=== PATIENT | female | born 1940 | race Caucasian/White ===

== ENCOUNTER 2020-12-13 08:09 | Outpatient (CLI) | payer MEDICARE, MEDICAID ==
[2020-12-13] MEDS ORDERED: Iopamidol-370 76% 500 ML 1 ML ONE (08:51)
== END 2020-12-13 08:10 | disposition home or self-care (01) ==
LOC: BICCT 08:09
PROVIDERS: ATTEND Thoracic Surgery (Cardiothoracic Vascular Surgery)
DX: I65.23 Occlusion and stenosis of bilateral carotid arteries (principal)
CPT/HCPCS: 70498; 82565; Q9967

== ENCOUNTER 2021-01-05 12:23 | Outpatient (CLI) | payer MEDICARE, MEDICAID ==
[2021-01-05 13:40] LABS: Hemoglobin 13.9 g/dL (12.0-15.5); Mean Corpuscular HGB CONC 31.5 g/dL (32.0-36.0); Mean Corpuscular Hemoglobin 27.7 pg (27.0-33.0); Mean Platelet Volume 11.1 fl (7.4-10.4); Platelet Count 158 10x3/uL (150-450); RBC Distribution Width 14.7 % (11.5-14.5); Red Blood Cell (RBC) Count 5.01 10x6/uL (3.90-5.03); White Blood Cell (WBC) Count 5.6 10x3/uL (3.5-10.5)
[2021-01-05 13:52] LABS: Anion Gap 13 mmol/L (10-20); BUN (Urea Nitrogen) 14 mg/dL (9.8-20.1); Calc. Creatinine Clearance 0 mL/min (70-130); Calcium 9.4 mg/dL (7.8-10.44); Carbon Dioxide 23 mmol/L (23-31); Chloride 111 mmol/L (98-107); Glucose 98 mg/dL (83-110); Potassium 4.2 mmol/L (3.5-5.1); Sodium 143 mmol/L (136-145)
[2021-01-05 20:47] LABS: SARS-CoV-2 PCR by NAA Not Detected (NotDetected)
== END 2021-01-05 12:24 | disposition home or self-care (01) ==
LOC: LABBT 12:23
PROVIDERS: ATTEND Thoracic Surgery (Cardiothoracic Vascular Surgery)
DX: Z01.812 Encounter for preprocedural laboratory examination (principal); I65.29 Occlusion and stenosis of unspecified carotid artery; Z20.822 Contact with and (suspected) exposure to COVID-19
CPT/HCPCS: 80048; 85027; U0003; U0005; 87635

== ENCOUNTER 2021-01-05 13:00 | Inpatient (IN) | payer MEDICARE, MEDICAID ==
[2021-01-10] MEDS ORDERED: Protamine Sulfate 250 MG/25 ML VIAL ONE (06:29)
[2021-01-10] MEDS ORDERED: Dexamethasone 4 mg/ml Vial ONE (06:29)
[2021-01-10] MEDS ORDERED: EPINEPHrine 1 MG/ML AMP ONE (06:29)
[2021-01-10] MEDS ORDERED: Heparin 5,000 UNITS/ML VIAL ONE (06:29)
[2021-01-10] MEDS ORDERED: Bupivacaine PF 0.5% 30 ML VIAL ONE (06:29)
[2021-01-10] MEDS ORDERED: Protamine Sulfate 50 MG/5 ML VIAL ONE (06:30)
[2021-01-10] MEDS ORDERED: Midazolam HCl 2 mg/2 ml Vial ONE (06:31)
[2021-01-10] MEDS ORDERED: Fentanyl 100 MCG/2 ML VIAL ONE ×2 (06:31→09:24)
[2021-01-10] MEDS ORDERED: Phenylephrine 10 MG/ML VIAL ONE (06:31)
[2021-01-10] MEDS ORDERED: Lidocaine 1% PF 5 ML VIAL ONE (07:18)
[2021-01-10] MEDS ORDERED: Glycopyrrolate 0.2 MG/ML 5 ML SYRINGE ONE (07:18)
[2021-01-10] MEDS ORDERED: Dexamethasone 20 MG/5 ML VIAL ONE (07:18)
[2021-01-10] MEDS ORDERED: PROPOFOL 200 MG/20 ML VIAL ONE (07:18)
[2021-01-10] MEDS ORDERED: Ondansetron PF 4 MG/2 ML Vial ONE (07:18)
[2021-01-10] MEDS ORDERED: Labetalol HCl 100 MG/20 ML VIAL ONE (07:18)
[2021-01-10] MEDS ORDERED: Ketorolac Tromethamine 30 MG/ML VIAL ONE (07:18)
[2021-01-10] MEDS ORDERED: Rocuronium Bromide 10 MG/ML (10ML VIAL) ONE (07:18)
[2021-01-10] MEDS ORDERED: Acetaminophen 325 MG TAB PO PRN (08:37)
[2021-01-10] MEDS ORDERED: niCARdipine 25 MG in Sodium Chloride 0.9% 250 ML 250 ML IVPB PRN (08:37)
[2021-01-10] MEDS ORDERED: Phenylephrine 40 MG in Sodium Chloride 0.9% 250 ML 250 ML IVPB PRN (08:37)
[2021-01-10] MEDS ORDERED: Nitroglycerin 50 MG/250 ML BOT 250 ML IVPB PRN (08:37)
[2021-01-10] MEDS ORDERED: Ondansetron PF 4 MG/2 ML Vial IVP PRN (08:37)
[2021-01-10] MEDS ORDERED: Ondansetron HCl/PF 4 MG/2 ML Vial IVP PRN (08:48)
[2021-01-10] MEDS ORDERED: Nitroglycerin 50 MG/250 ML BOT 0 ML ONE (08:51)
[2021-01-10] MEDS: Sodium Chloride 0.9% 1,000 ML IV SCH ×2 (11:14→20:55)
[2021-01-10] MEDS: Aspirin Chewable 81 MG TAB PO SCH (11:26)
[2021-01-10] MEDS: Gabapentin 300 MG CAP PO SCH ×3 (11:26→20:48)
[2021-01-10] MEDS: Topiramate 100 MG TAB PO SCH ×2 (11:27→20:49)
[2021-01-10] MEDS: CEFAZOLIN 2 GM in Premix Bag 1 BAG IVPB SCH ×2 (16:30→22:57)
[2021-01-10 17:29] VITALS: BMI 30.5
[2021-01-10] MEDS: Fentanyl 100 MCG/2 ML VIAL SLOW IVP PRN ×2 (18:36→22:55)
[2021-01-11] MEDS: Sodium Chloride 0.9% 1,000 ML IV SCH (04:40)
[2021-01-11] MEDS: Aspirin Chewable 81 MG TAB PO SCH (07:45)
[2021-01-11] MEDS: Topiramate 100 MG TAB PO SCH (07:45)
[2021-01-11] MEDS: Gabapentin 300 MG CAP PO SCH (07:46)
[2021-01-11 08:50] VITALS: TEMP 99.8
[2021-01-11] MEDS ORDERED: Clopidogrel Bisulfate 75 MG TAB PO SCH (09:00)
[2021-01-11] MEDS ORDERED: Rosuvastatin 20 MG TAB PO SCH (09:00)
[2021-01-11] MEDS ORDERED: Potassium Chloride 10 MEQ TAB PO SCH (09:00)
[2021-01-11] MEDS ORDERED: Apixaban 5 MG TAB PO SCH (09:00)
== END 2021-01-11 10:00 | disposition home or self-care (01) | DRG 36 ==
LOC: SURG A 01-10 06:03 → CCU 01-10 10:15
PROVIDERS: ADMIT Thoracic Surgery (Cardiothoracic Vascular Surgery); ATTEND Thoracic Surgery (Cardiothoracic Vascular Surgery)
PROC: 037J3DZ Dilation of Left Common Carotid Artery with Intraluminal Device, Percutaneous Approach (ICD-10-PCS; principal; 2021-01-10)
PROC: B54CZZA Ultrasonography of Left Lower Extremity Veins, Guidance (ICD-10-PCS; 2021-01-10)
DX: I65.22 Occlusion and stenosis of left carotid artery (principal); Z20.822 Contact with and (suspected) exposure to COVID-19; I25.10 Atherosclerotic heart disease of native coronary artery without angina pectoris; I73.9 Peripheral vascular disease, unspecified; E78.00 Pure hypercholesterolemia, unspecified; I10 Essential (primary) hypertension; M10.9 Gout, unspecified; G40.909 Epilepsy, unspecified, not intractable, without status epilepticus; Z90.710 Acquired absence of both cervix and uterus; Z87.891 Personal history of nicotine dependence; Z79.82 Long term (current) use of aspirin; Z79.899 Other long term (current) drug therapy
CPT/HCPCS: 76000; 93005; 93010; C1725; C1876; C1884; J0171; J0690; J1100; J1642; J1644; J1885; J2250; J2370; J2405; J2704; J2720; J3010; J7620; S0020

== ENCOUNTER 2022-02-01 11:34 | Inpatient (IN) | payer MEDICARE, MEDICAID ==
[2022-02-01] MEDS ORDERED: Ondansetron PF 4 MG/2 ML Vial ONE (12:13)
[2022-02-01 12:28] LABS: Hemoglobin 11.6 g/dL (12.0-16.0); Mean Corpuscular HGB CONC 29.9 g/dL (32.0-36.0); Mean Corpuscular Hemoglobin 24.5 pg (27.0-31.0); Mean Corpuscular Volume 81.7 fL (78.0-98.0); Mean Platelet Volume 9.7 fL (7.4-10.4); Platelet Count 146 thou/uL (130-400); RBC Distribution Width 15.9 % (11.5-14.5); Red Blood Cell (RBC) Count 4.73 mill/uL (4.20-5.40)
[2022-02-01 12:46] LABS: Band 28 % (5-11); Hypochromia SLIGHT = 6-15 cells (100X) (0-5/hpf); Lymphocytes 4 % (21-51); MDiff Complete? YES; Monocytes 1 % (0-10); Neutrophil 63 % (42-75); Ovalocytes SLIGHT = 2-5 cells (100X) (0-1/hpf); Platelet Morphology Comment Appears Adequate; Polychromasia SLIGHT = 2-3 cells (100X) (0-2/hpf); Reactive Lymphocytes 4 % (0-10)
[2022-02-01] MEDS ORDERED: Cefepime 2 GM VIAL ONE (12:55)
[2022-02-01 13:06] LABS: Bacteria/HPF 4+ HPF (None Seen); Bilirubin Negative (Negative); Blood, Urine 3+ (Negative); Clarity Turbid (Clear); Glucose, Urine (Dipstick) Normal (Negative); Ketone, Urine Negative (Negative); Leukocyte 500 Leu/uL (Negative); Nitrite Negative (Negative); Protein, Urine (Dipstick) 70 mg/dL (Neg-Trace); RBC/HPF Greater than 50 HPF (0-3); Specific Gravity, Urine 1.021 (1.002-1.036); Squamous Epithelial 0-3 HPF (0-3); Urobilinogen 3 mg/dL (Less than 2); WBC/HPF Greater than 50 HPF (0-3); pH, Urine 5.5 (5.0-9.0)
[2022-02-01] MEDS ORDERED: Vancomycin 1.5 GRAM/300 ML BAG 1.5 GM in Premix Bag 1 BAG IVPB SCH (13:15)
[2022-02-01 13:32] LABS: ALT (SGPT) 16 U/L (8-55); AST (SGOT) 25 U/L (5-34); Alkaline Phosphatase 105 U/L (40-110); Anion Gap 13 mmol/L (10-20); BUN (Urea Nitrogen) 25 mg/dL (9.8-20.1); Bilirubin, Total 1.2 mg/dL (0.2-1.2); Calc. Creatinine Clearance 0 mL/min (70-130); Carbon Dioxide 20 mmol/L (23-31); Chloride 115 mmol/L (98-107); Globulin 2.4 g/dL (2.4-3.5); Glucose 98 mg/dL (83-110); Protein, Total 5.4 g/dL (5.8-8.1); Sodium 145 mmol/L (136-145)
[2022-02-01 13:34] LABS: Potassium 2.9 mmol/L (3.5-5.1)
[2022-02-01 13:41] LABS: INR-International Normal Ratio 1.4; Prothrombin Time 17.3 sec (12.0-14.7)
[2022-02-01] MEDS ORDERED: NS 0.9% w/ 40 MEQ KCL 1,000 ML IV SCH (13:45)
[2022-02-01 13:54] LABS: PTT 35.9 sec (22.9-36.1)
[2022-02-01 14:01] LABS: CKMB 2.5 ng/mL (0-6.6)
[2022-02-01] MEDS ORDERED: Iopamidol-370 76% 500 ML 1 ML ONE (15:20)
[2022-02-01 15:44] LABS: Lactic Acid 4.5 mmol/L (0.5-2.2)
[2022-02-01] MEDS ORDERED: Ondansetron ODT 4 MG TAB PO PRN (16:24)
[2022-02-01] MEDS ORDERED: Lactated Ringer's 1,000 ML IV SCH (16:30)
[2022-02-01 17:08] LABS: Anion Gap 10 mmol/L (10-20); BUN (Urea Nitrogen) 26 mg/dL (9.8-20.1); Calc. Creatinine Clearance 0 mL/min (70-130); Calcium 7.2 mg/dL (7.8-10.44); Carbon Dioxide 19 mmol/L (23-31); Chloride 117 mmol/L (98-107); Glucose 116 mg/dL (83-110); Potassium 3.5 mmol/L (3.5-5.1); Sodium 142 mmol/L (136-145)
[2022-02-01 17:10] LABS: CK (CPK) 331 U/L (29-168); Lipase 16 U/L (8-78); Magnesium 1.4 mg/dL (1.6-2.6)
[2022-02-01 17:15] LABS: SARS-CoV-2 NAA Rapid Test DETECTED (NotDetected)
[2022-02-01 17:28] LABS: Troponin I 0.487 ng/mL (< 0.028)
[2022-02-01] MEDS ORDERED: Iopamidol 0 ML ONE (17:31)
[2022-02-01] MEDS ORDERED: Magnesium 2 GM/50 ML(in water) 2 GM in Premix Bag 1 BAG IVPB SCH (18:00)
[2022-02-01] MEDS ORDERED: fentaNYL Citrate/PF 100 MCG/2 ML SYRINGE ONE (18:18)
[2022-02-01] MEDS ORDERED: Succinylcholine 200 MG/10 ml SYRINGE FS ONE (18:46)
[2022-02-01] MEDS ORDERED: PHENYLEPHRINE-NS 100 MCG/ML 10 ML SYRINGE ONE (18:46)
[2022-02-01] MEDS ORDERED: ePHEDrine 50 MG/ML VIAL ONE (18:46)
[2022-02-01] MEDS ORDERED: Lidocaine 1% PF 5 ML VIAL ONE (18:46)
[2022-02-01] MEDS ORDERED: Rocuronium Bromide 10 MG/ML (10ML VIAL) ONE (18:46)
[2022-02-01] MEDS ORDERED: PROPOFOL 200 MG/20 ML VIAL ONE (18:46)
[2022-02-01] MEDS ORDERED: Phenylephrine 40 MG/NS 250 ML 40 MG in Premix Bag 1 BAG IVPB SCH (19:45)
[2022-02-01] MEDS ORDERED: Dextrose 50% Abboject 50 ML SYRINGE ONE (20:18)
[2022-02-01] MEDS ORDERED: Sodium Bicarb 50 MEQ/50 ML VIAL ONE (20:19)
[2022-02-01] MEDS ORDERED: Vecuronium 10 MG VIAL IVP PRN (21:23)
[2022-02-01] MEDS ORDERED: Ventilator Sedation Protocol 1 EACH FS SCH (21:30)
[2022-02-01] MEDS ORDERED: Propofol BOLUS 1,000 MG/100 ML VIAL IV PRN (21:30)
[2022-02-01] MEDS ORDERED: Lorazepam 2 MG/ML VIAL SLOW IVP PRN (21:30)
[2022-02-01] MEDS ORDERED: DISCONTINUE PREVIOUS NARCOTIC PAIN MEDICATIONS AND BENZODIAZEPINES FS SCH (21:30)
[2022-02-01] MEDS ORDERED: Morphine 4 MG/ML VIAL SLOW IVP PRN (21:30)
[2022-02-01] MEDS ORDERED: Fentanyl CADD 100 ML IV SCH (21:30)
[2022-02-01] MEDS ORDERED: Fentanyl BOLUS 250 ML IVPB PRN (21:30)
[2022-02-01] MEDS ORDERED: Norepinephrine 8 MG/0.9% NS 250 ML ONE (21:37)
[2022-02-01] MEDS: Norepinephrine 8 MG/0.9% NS 250 ML IVPB SCH (21:39)
[2022-02-01 21:50] LABS: Lactic Acid 3.4 mmol/L (0.5-2.2)
[2022-02-01] MEDS ORDERED: Dexamethasone 6 MG in Sodium Chloride 0.9% 50 ML IVPB SCH (22:00)
[2022-02-01] MEDS: Sodium Bicarbonate 140 MEQ in Dextrose 5% in Water 1,000 ML IV SCH (22:25)
[2022-02-02] MEDS ORDERED: Piperacillin/Tazobactam 3.375 GM in Sodium Chloride 0.9% 100 ML IVPB SCH (01:00)
[2022-02-02] MEDS: fentaNYL Citrate-0.9 % NaCl/PF 100 ML IVPB SCH (02:27)
[2022-02-02] MEDS ORDERED: Ipratropium/Albuterol Sulfate 4 GM AER IH SCH (02:30)
[2022-02-02] MEDS: Piperacillin/Tazobactam 3.375 GM in Sodium Chloride 0.9% 100 ML IVPB SCH ×3 (04:16→21:38)
[2022-02-02 05:10] LABS: ALT (SGPT) 24 U/L (8-55); AST (SGOT) 38 U/L (5-34); Albumin 2.3 g/dL (3.4-4.8); Alkaline Phosphatase 95 U/L (40-110); Anion Gap 14 mmol/L (10-20); BUN (Urea Nitrogen) 27 mg/dL (9.8-20.1); Calc. Creatinine Clearance 45 mL/min (70-130); Calcium 6.6 mg/dL (7.8-10.44); Carbon Dioxide 20 mmol/L (23-31); Chloride 111 mmol/L (98-107); Glucose 287 mg/dL (83-110); Magnesium 1.9 mg/dL (1.6-2.6); Protein, Total 4.3 g/dL (5.8-8.1); Sodium 142 mmol/L (136-145)
[2022-02-02 05:14] LABS: Critical Call Chem Troponin I RESULT DECREASING; Troponin I 0.386 ng/mL (< 0.028)
[2022-02-02] MEDS: Sodium Bicarbonate 140 MEQ in Dextrose 5% in Water 1,000 ML IV SCH ×3 (05:31→21:36)
[2022-02-02 06:37] LABS: Band 41 % (5-11); Hemoglobin 10.3 g/dL (12.0-16.0); Lymphocytes 2 % (21-51); MDiff Complete? YES; Mean Corpuscular HGB CONC 30.2 g/dL (32.0-36.0); Mean Corpuscular Hemoglobin 24.5 pg (27.0-31.0); Mean Corpuscular Volume 81.3 fL (78.0-98.0); Mean Platelet Volume 10.7 fL (7.4-10.4); Metamyelocyte 3 % (0-0); Myelocyte 3 % (0-0); Neutrophil 51 % (42-75); Platelet Count 171 thou/uL (130-400); RBC Distribution Width 15.9 % (11.5-14.5); White Blood Cell (WBC) Count 36.3 thou/uL (4.8-10.8)
[2022-02-02] MEDS ORDERED: Electrolyte Replacement Protocol 1 EACH FS PRN (06:37)
[2022-02-02] MEDS: Albuterol 200 PUFF (6.7GM INHALER) INH SCH ×6 (06:41→22:14)
[2022-02-02] MEDS: Ipratropium/Albuterol Sulfate 4 GM AER IH SCH ×3 (07:28→18:59)
[2022-02-02 07:47] LABS: Actual Bicarbonate (HCO3a) 17.5 mEq/L (22-28); Base Excess (BEa) -4.7 mEq/L (-2.0 to +3.0); Calcium, Ionized (arterial) 0.95 mmol/L (1.12-1.30); Carboxyhemoglobin (COHb) 0.2 gm% (0.0-3.0); Hemoglobin (Hb) 10.7 g/dL (12.0-16.0); O2 Tension (PaO2), arterial 133.4 mmHg (> 60.0); pH, Arterial 7.48 (7.35-7.45)
[2022-02-02 07:51] LABS: CO2 Tension 24.2 mmHg (35.0-45.0); Puncture Site RRA
[2022-02-02] MEDS ORDERED: Magnesium 2 GM/50 ML(in water) 2 GM in Premix Bag 1 BAG IVPB SCH (08:00)
[2022-02-02] MEDS ORDERED: Famotidine/PF 20 mg/2ml Vial SLOW IVP SCH (09:00)
[2022-02-02] MEDS: VANCOMYCIN 1.25 GM/250 ML BAG 1.25 GM in Premix Bag 1 BAG IVPB SCH (09:10)
[2022-02-02] MEDS: Dexamethasone 6 MG in Sodium Chloride 0.9% 50 ML IVPB SCH (10:24)
[2022-02-02] MEDS: Potassium Chloride 20 MEQ in Premix Bag 1 BAG IVPB SCH ×2 (11:18→16:29)
[2022-02-02 12:35] LABS: Anion Gap 11 mmol/L (10-20); BUN (Urea Nitrogen) 25 mg/dL (9.8-20.1); Calc. Creatinine Clearance 48 mL/min (70-130); Calcium 6.5 mg/dL (7.8-10.44); Carbon Dioxide 23 mmol/L (23-31); Chloride 107 mmol/L (98-107); Glucose 213 mg/dL (83-110); Potassium 3.1 mmol/L (3.5-5.1); Sodium 138 mmol/L (136-145)
[2022-02-02] MEDS: Propofol 1,000 MG/100 ML VIAL IV PRN (12:57)
[2022-02-02] MEDS ORDERED: Potassium Chloride 20 MEQ in Premix Bag 1 BAG IVPB SCH (14:00)
[2022-02-02] MEDS ORDERED: Sodium Bicarbonate 2.5 MEQ/5 ML VIAL ONE (14:39)
[2022-02-02] MEDS: Norepinephrine 8 MG/0.9% NS 250 ML IVPB SCH (16:48)
[2022-02-02 19:12] LABS: Anion Gap 11 mmol/L (10-20); BUN (Urea Nitrogen) 25 mg/dL (9.8-20.1); Calc. Creatinine Clearance 50 mL/min (70-130); Calcium 6.6 mg/dL (7.8-10.44); Carbon Dioxide 29 mmol/L (23-31); Chloride 104 mmol/L (98-107); Glucose 309 mg/dL (83-110); Potassium 3.7 mmol/L (3.5-5.1); Sodium 140 mmol/L (136-145)
[2022-02-02] MEDS: Famotidine 40 MG/4 ML VIAL SLOW IVP SCH (21:39)
[2022-02-03] MEDS: Propofol 1,000 MG/100 ML VIAL IV PRN (01:13)
[2022-02-03] MEDS: Ipratropium/Albuterol Sulfate 4 GM AER IH SCH ×4 (01:54→18:17)
[2022-02-03] MEDS: Albuterol 200 PUFF (6.7GM INHALER) INH SCH ×6 (02:40→21:55)
[2022-02-03 04:19] LABS: Hemoglobin 10.6 g/dL (12.0-16.0); Mean Corpuscular HGB CONC 30.9 g/dL (32.0-36.0); Mean Corpuscular Hemoglobin 25.6 pg (27.0-31.0); Mean Corpuscular Volume 82.6 fL (78.0-98.0); Mean Platelet Volume 10.5 fL (7.4-10.4); Platelet Count 138 thou/uL (130-400); RBC Distribution Width 15.9 % (11.5-14.5); Red Blood Cell (RBC) Count 4.16 mill/uL (4.20-5.40); White Blood Cell (WBC) Count 31.8 thou/uL (4.8-10.8)
[2022-02-03 04:37] LABS: ALT (SGPT) 30 U/L (8-55); AST (SGOT) 42 U/L (5-34); Albumin 2.4 g/dL (3.4-4.8); Alkaline Phosphatase 113 U/L (40-110); Anion Gap 12 mmol/L (10-20); BUN (Urea Nitrogen) 24 mg/dL (9.8-20.1); Bilirubin, Total 0.6 mg/dL (0.2-1.2); Calc. Creatinine Clearance 52 mL/min (70-130); Calcium 6.9 mg/dL (7.8-10.44); Carbon Dioxide 30 mmol/L (23-31); Chloride 101 mmol/L (98-107); Globulin 2.3 g/dL (2.4-3.5); Glucose 194 mg/dL (83-110); Potassium 3.4 mmol/L (3.5-5.1); Protein, Total 4.7 g/dL (5.8-8.1); Sodium 140 mmol/L (136-145)
[2022-02-03 04:53] LABS: Band 34 % (5-11); Lymphocytes 1 % (21-51); MDiff Complete? YES; Monocytes 1 % (0-10); Neutrophil 64 % (42-75)
[2022-02-03] MEDS: Sodium Bicarbonate 140 MEQ in Dextrose 5% in Water 1,000 ML IV SCH ×3 (05:46→21:21)
[2022-02-03] MEDS: Piperacillin/Tazobactam 3.375 GM in Sodium Chloride 0.9% 100 ML IVPB SCH ×3 (05:50→21:22)
[2022-02-03 06:09] LABS: Hemoglobin A1c 5.8 % (4.0-6.0)
[2022-02-03] MEDS: Potassium Chloride 20 MEQ in Premix Bag 1 BAG IVPB SCH ×2 (07:04→08:41)
[2022-02-03] MEDS ORDERED: Dextrose 50% Abboject 50 ML SYRINGE SLOW IVP PRN (07:37)
[2022-02-03] MEDS ORDERED: Dextrose 5% in Water 1,000 ML IV PRN (07:37)
[2022-02-03] MEDS ORDERED: HumaLOG 300 UNITS/3 ML VIAL SC PRN ×2 (07:37)
[2022-02-03] MEDS ORDERED: Potassium Chloride 20 MEQ in Premix Bag 1 BAG IVPB SCH (08:00)
[2022-02-03] MEDS: fentaNYL Citrate-0.9 % NaCl/PF 100 ML IVPB SCH (08:38)
[2022-02-03] MEDS ORDERED: Apixaban 5 MG TAB PO SCH (09:00)
[2022-02-03] MEDS: Dexamethasone 6 MG in Sodium Chloride 0.9% 50 ML IVPB SCH (09:54)
[2022-02-03] MEDS: Aspirin Chewable 81 MG TAB PO SCH (09:54)
[2022-02-03] MEDS: Rosuvastatin 20 MG TAB PO SCH (09:54)
[2022-02-03] MEDS: Topiramate 100 MG TAB PO SCH ×2 (10:07→21:22)
[2022-02-03] MEDS: Famotidine 40 MG/4 ML VIAL SLOW IVP SCH ×2 (10:52→21:22)
[2022-02-03] MEDS: VANCOMYCIN 1.25 GM/250 ML BAG 1.25 GM in Premix Bag 1 BAG IVPB SCH (10:52)
[2022-02-03] MEDS: Latanoprost 0.005% Ophth Soln 2.5 ml Bottle EA EYE SCH (21:21)
[2022-02-04] MEDS: Ipratropium/Albuterol Sulfate 4 GM AER IH SCH ×4 (01:26→18:49)
[2022-02-04] MEDS: Ondansetron PF 4 MG/2 ML Vial IVP PRN ×3 (03:03→20:59)
[2022-02-04] MEDS: Albuterol 200 PUFF (6.7GM INHALER) INH SCH ×6 (03:05→22:05)
[2022-02-04] MEDS: Sodium Bicarbonate 140 MEQ in Dextrose 5% in Water 1,000 ML IV SCH (05:09)
[2022-02-04] MEDS: Piperacillin/Tazobactam 3.375 GM in Sodium Chloride 0.9% 100 ML IVPB SCH ×3 (05:09→23:36)
[2022-02-04 05:46] LABS: ALT (SGPT) 29 U/L (8-55); AST (SGOT) 39 U/L (5-34); Albumin 2.7 g/dL (3.4-4.8); Alkaline Phosphatase 106 U/L (40-110); Anion Gap 13 mmol/L (10-20); BUN (Urea Nitrogen) 18 mg/dL (9.8-20.1); Bilirubin, Total 0.5 mg/dL (0.2-1.2); Calc. Creatinine Clearance 59 mL/min (70-130); Calcium 7.7 mg/dL (7.8-10.44); Carbon Dioxide 34 mmol/L (23-31); Chloride 99 mmol/L (98-107); Globulin 2.5 g/dL (2.4-3.5); Glucose 125 mg/dL (83-110); Potassium 3.6 mmol/L (3.5-5.1); Protein, Total 5.2 g/dL (5.8-8.1); Sodium 142 mmol/L (136-145)
[2022-02-04 06:19] LABS: Band 19 % (5-11); Hemoglobin 9.7 g/dL (12.0-16.0); Lymphocytes 7 % (21-51); MDiff Complete? YES; Mean Corpuscular HGB CONC 30.5 g/dL (32.0-36.0); Mean Corpuscular Hemoglobin 25.4 pg (27.0-31.0); Mean Corpuscular Volume 83.2 fL (78.0-98.0); Mean Platelet Volume 9.9 fL (7.4-10.4); Neutrophil 74 % (42-75); Platelet Count 104 thou/uL (130-400); Platelet Morphology Comment Appears Decreased; RBC Distribution Width 15.5 % (11.5-14.5); Red Blood Cell (RBC) Count 3.83 mill/uL (4.20-5.40); White Blood Cell (WBC) Count 25.9 thou/uL (4.8-10.8)
[2022-02-04] MEDS ORDERED: hydrALAZINE 20 MG/ML VIAL SLOW IVP PRN (08:10)
[2022-02-04] MEDS: Dexamethasone 4 mg/ml Vial SLOW IVP SCH (09:08)
[2022-02-04] MEDS: Aspirin Chewable 81 MG TAB PO SCH (09:09)
[2022-02-04] MEDS: Famotidine 40 MG/4 ML VIAL SLOW IVP SCH (09:13)
[2022-02-04] MEDS: Rosuvastatin 20 MG TAB PO SCH (09:13)
[2022-02-04] MEDS: Acetaminophen 325 MG TAB PO PRN (09:16)
[2022-02-04] MEDS: Topiramate 100 MG TAB PO SCH ×2 (09:17→20:59)
[2022-02-04] MEDS ORDERED: Ampicillin/Sulbactam 3 GM in Sodium Chloride 0.9% 100 ML IVPB SCH ×2 (09:30→10:00)
[2022-02-04] MEDS ORDERED: Potassium Chloride 20 MEQ TAB PO SCH ×3 (09:30→17:00)
[2022-02-04] MEDS ORDERED: Furosemide 20 MG/2 ML VIAL SLOW IVP SCH ×2 (09:30→09:35)
[2022-02-04] MEDS: VANCOMYCIN 1.25 GM/250 ML BAG 1.25 GM in Premix Bag 1 BAG IVPB SCH (09:52)
[2022-02-04 10:07] LABS: Vancomycin, Trough 11.5 ug/mL
[2022-02-04] MEDS ORDERED: Labetalol HCl 100 MG/20 ML VIAL SLOW IVP PRN (10:25)
[2022-02-04] MEDS ORDERED: Potassium Chloride 40 MEQ in Premix Bag 1 BAG IVPB SCH ×2 (11:00→18:00)
[2022-02-04] MEDS ORDERED: Piperacillin/Tazobactam 3.375 GM in Sodium Chloride 0.9% 100 ML IVPB SCH ×2 (12:00→13:00)
[2022-02-04] MEDS: niCARdipine 25 MG in Sodium Chloride 0.9% 250 ML 250 ML IVPB SCH ×2 (16:11→21:14)
[2022-02-04] MEDS: Lorazepam 2 MG/ML VIAL SLOW IVP PRN (20:59)
[2022-02-04] MEDS: Latanoprost 0.005% Ophth Soln 2.5 ml Bottle EA EYE SCH (20:59)
[2022-02-04] MEDS ORDERED: Enoxaparin Sodium 80 MG/0.8 ML SYRINGE SC SCH (21:00)
[2022-02-05] MEDS: niCARdipine 25 MG in Sodium Chloride 0.9% 250 ML 250 ML IVPB SCH ×4 (01:40→20:18)
[2022-02-05] MEDS: Ipratropium/Albuterol Sulfate 4 GM AER IH SCH ×5 (02:02→22:40)
[2022-02-05] MEDS: Albuterol 200 PUFF (6.7GM INHALER) INH SCH ×6 (02:02→22:39)
[2022-02-05 05:10] LABS: ALT (SGPT) 29 U/L (8-55); AST (SGOT) 38 U/L (5-34); Albumin 2.9 g/dL (3.4-4.8); Alkaline Phosphatase 116 U/L (40-110); Anion Gap 11 mmol/L (10-20); BUN (Urea Nitrogen) 17 mg/dL (9.8-20.1); Bilirubin, Total 0.5 mg/dL (0.2-1.2); Calc. Creatinine Clearance 66 mL/min (70-130); Calcium 8.5 mg/dL (7.8-10.44); Carbon Dioxide 32 mmol/L (23-31); Chloride 103 mmol/L (98-107); Globulin 2.7 g/dL (2.4-3.5); Glucose 96 mg/dL (83-110); Potassium 3.9 mmol/L (3.5-5.1); Protein, Total 5.6 g/dL (5.8-8.1); Sodium 142 mmol/L (136-145)
[2022-02-05 05:17] LABS: Band 8 % (5-11); Hemoglobin 9.5 g/dL (12.0-16.0); MDiff Complete? YES; Mean Corpuscular HGB CONC 29.9 g/dL (32.0-36.0); Mean Corpuscular Hemoglobin 24.9 pg (27.0-31.0); Mean Corpuscular Volume 83.3 fL (78.0-98.0); Mean Platelet Volume 10.2 fL (7.4-10.4); Monocytes 4 % (0-10); Neutrophil 88 % (42-75); Platelet Count 124 thou/uL (130-400); RBC Distribution Width 15.5 % (11.5-14.5); White Blood Cell (WBC) Count 24.5 thou/uL (4.8-10.8)
[2022-02-05] MEDS ORDERED: Furosemide 40 MG/4 ML VIAL IVP SCH (08:19)
[2022-02-05] MEDS: Ampicillin/Sulbactam 3 GM in Sodium Chloride 0.9% 100 ML IVPB SCH ×3 (08:45→20:12)
[2022-02-05] MEDS ORDERED: Furosemide 20 MG/2 ML VIAL SLOW IVP SCH (09:00)
[2022-02-05] MEDS ORDERED: VANCOMYCIN 1.25 GM/250 ML BAG 1.25 GM in Premix Bag 1 BAG IVPB SCH (09:00)
[2022-02-05] MEDS: Acetaminophen 325 MG TAB PO PRN (09:02)
[2022-02-05] MEDS: Aspirin Chewable 81 MG TAB PO SCH (09:02)
[2022-02-05] MEDS: Dexamethasone 4 mg/ml Vial SLOW IVP SCH (09:03)
[2022-02-05] MEDS: Topiramate 100 MG TAB PO SCH ×2 (09:07→20:14)
[2022-02-05] MEDS: Rosuvastatin 20 MG TAB PO SCH (09:08)
[2022-02-05] MEDS: Apixaban 5 MG TAB PO SCH ×2 (09:08→20:13)
[2022-02-05] MEDS: Ondansetron PF 4 MG/2 ML Vial IVP PRN (09:08)
[2022-02-05] MEDS: Latanoprost 0.005% Ophth Soln 2.5 ml Bottle EA EYE SCH (20:13)
[2022-02-06] MEDS ORDERED: niCARdipine 50 MG in Sodium Chloride 0.9% 250 ML 230 ML IVPB SCH (01:15)
[2022-02-06] MEDS: Ampicillin/Sulbactam 3 GM in Sodium Chloride 0.9% 100 ML IVPB SCH ×4 (01:30→20:01)
[2022-02-06] MEDS ORDERED: niCARdipine 50 MG, Admixture Fee 1 EACH in Sodium Chloride 0.9% 250 ML 230 ML IVPB SCH (02:00)
[2022-02-06] MEDS: Albuterol 200 PUFF (6.7GM INHALER) INH SCH ×6 (02:42→21:43)
[2022-02-06 05:00] LABS: ALT (SGPT) 26 U/L (8-55); AST (SGOT) 33 U/L (5-34); Albumin 3.1 g/dL (3.4-4.8); Alkaline Phosphatase 131 U/L (40-110); Anion Gap 15 mmol/L (10-20); BUN (Urea Nitrogen) 17 mg/dL (9.8-20.1); Bilirubin, Total 0.6 mg/dL (0.2-1.2); Calc. Creatinine Clearance 64 mL/min (70-130); Calcium 8.5 mg/dL (7.8-10.44); Carbon Dioxide 24 mmol/L (23-31); Chloride 107 mmol/L (98-107); Globulin 2.8 g/dL (2.4-3.5); Glucose 93 mg/dL (83-110); Potassium 3.8 mmol/L (3.5-5.1); Protein, Total 5.9 g/dL (5.8-8.1); Sodium 142 mmol/L (136-145)
[2022-02-06 05:22] LABS: Band 6 % (5-11); Hemoglobin 9.4 g/dL (12.0-16.0); Lymphocytes 10 % (21-51); MDiff Complete? YES; Mean Corpuscular Hemoglobin 24.9 pg (27.0-31.0); Mean Corpuscular Volume 80.5 fL (78.0-98.0); Mean Platelet Volume 9.9 fL (7.4-10.4); Monocytes 4 % (0-10); Neutrophil 80 % (42-75); Nucleated RBC 1 % (0); Platelet Count 136 thou/uL (130-400); RBC Distribution Width 15.7 % (11.5-14.5); Red Blood Cell (RBC) Count 3.77 mill/uL (4.20-5.40); White Blood Cell (WBC) Count 16.7 thou/uL (4.8-10.8)
[2022-02-06] MEDS: Ipratropium/Albuterol Sulfate 4 GM AER IH SCH ×3 (07:39→19:26)
[2022-02-06] MEDS ORDERED: Furosemide 40 MG/4 ML VIAL SLOW IVP SCH (08:00)
[2022-02-06] MEDS: Aspirin Chewable 81 MG TAB PO SCH (08:29)
[2022-02-06] MEDS: Multivitamin W/ Minerals 1 TAB PO SCH (08:30)
[2022-02-06] MEDS: Dexamethasone 4 mg/ml Vial SLOW IVP SCH (08:30)
[2022-02-06] MEDS: Famotidine 20 MG TAB PO SCH (08:36)
[2022-02-06] MEDS: Apixaban 5 MG TAB PO SCH ×2 (08:36→20:01)
[2022-02-06] MEDS: Topiramate 100 MG TAB PO SCH (08:36)
[2022-02-06] MEDS: Ondansetron PF 4 MG/2 ML Vial IVP PRN (08:37)
[2022-02-06] MEDS: Rosuvastatin 20 MG TAB PO SCH (08:37)
[2022-02-06] MEDS ORDERED: Lisinopril 10 MG TAB PO SCH (11:00)
[2022-02-06] MEDS: Lisinopril 10 MG TAB PO SCH (12:34)
[2022-02-06] MEDS: Mometasone/Formoterol 60 PUFF AER INH SCH (19:11)
[2022-02-06] MEDS: Mometasone 100 MCG/Formoterol 5 MCG 120 PUFF INHALER INH SCH (19:25)
[2022-02-06] MEDS: Latanoprost 0.005% Ophth Soln 2.5 ml Bottle EA EYE SCH (20:01)
[2022-02-06] MEDS: Ascorbic Acid 500 mg Chewable Tablet PO SCH (20:01)
[2022-02-06] MEDS: hydrALAZINE 20 MG/ML VIAL SLOW IVP PRN (20:02)
[2022-02-06] MEDS: Topiramate 25 MG TAB PO SCH (20:02)
[2022-02-07] MEDS: Ipratropium/Albuterol Sulfate 4 GM AER IH SCH ×5 (00:32→23:21)
[2022-02-07] MEDS: Ampicillin/Sulbactam 3 GM in Sodium Chloride 0.9% 100 ML IVPB SCH ×4 (01:24→20:27)
[2022-02-07] MEDS: Albuterol 200 PUFF (6.7GM INHALER) INH SCH ×6 (02:14→23:20)
[2022-02-07] MEDS: hydrALAZINE 20 MG/ML VIAL SLOW IVP PRN ×2 (02:42→15:21)
[2022-02-07 04:25] LABS: ALT (SGPT) 23 U/L (8-55); AST (SGOT) 25 U/L (5-34); Alkaline Phosphatase 115 U/L (40-110); Anion Gap 11 mmol/L (10-20); BUN (Urea Nitrogen) 22 mg/dL (9.8-20.1); Bilirubin, Total 0.5 mg/dL (0.2-1.2); Calc. Creatinine Clearance 74 mL/min (70-130); Calcium 9.1 mg/dL (7.8-10.44); Carbon Dioxide 25 mmol/L (23-31); Chloride 108 mmol/L (98-107); Globulin 2.8 g/dL (2.4-3.5); Glucose 109 mg/dL (83-110); Potassium 3.5 mmol/L (3.5-5.1); Protein, Total 5.8 g/dL (5.8-8.1); Sodium 140 mmol/L (136-145)
[2022-02-07 04:58] LABS: Band 1 % (5-11); Hemoglobin 9.9 g/dL (12.0-16.0); Lymphocytes 12 % (21-51); MDiff Complete? YES; Mean Corpuscular HGB CONC 31.7 g/dL (32.0-36.0); Mean Corpuscular Hemoglobin 25.2 pg (27.0-31.0); Mean Corpuscular Volume 79.4 fL (78.0-98.0); Monocytes 9 % (0-10); Myelocyte 2 % (0-0); Neutrophil 76 % (42-75); Platelet Count 190 thou/uL (130-400); RBC Distribution Width 15.8 % (11.5-14.5); Red Blood Cell (RBC) Count 3.93 mill/uL (4.20-5.40); White Blood Cell (WBC) Count 15.9 thou/uL (4.8-10.8)
[2022-02-07] MEDS ORDERED: Potassium Chloride 40 MEQ in Premix Bag 1 BAG IVPB SCH (06:00)
[2022-02-07] MEDS: Potassium Chloride 20 MEQ in Premix Bag 1 BAG IVPB SCH ×2 (06:15→10:16)
[2022-02-07] MEDS: Mometasone/Formoterol 60 PUFF AER INH SCH ×2 (07:12→19:50)
[2022-02-07] MEDS: Mometasone 100 MCG/Formoterol 5 MCG 120 PUFF INHALER INH SCH (07:14)
[2022-02-07] MEDS: Aspirin Chewable 81 MG TAB PO SCH (09:07)
[2022-02-07] MEDS: Dexamethasone 4 MG TAB PO SCH (09:07)
[2022-02-07] MEDS: Topiramate 25 MG TAB PO SCH (09:08)
[2022-02-07] MEDS: Famotidine 20 MG TAB PO SCH (09:08)
[2022-02-07] MEDS: Multivitamin W/ Minerals 1 TAB PO SCH (09:09)
[2022-02-07] MEDS: Rosuvastatin 20 MG TAB PO SCH (09:09)
[2022-02-07] MEDS: Lisinopril 10 MG TAB PO SCH (09:09)
[2022-02-07] MEDS: Apixaban 5 MG TAB PO SCH ×2 (09:09→20:20)
[2022-02-07] MEDS: Carvedilol 3.125 MG TAB PO SCH ×2 (09:09→16:26)
[2022-02-07] MEDS: Ascorbic Acid 500 mg Chewable Tablet PO SCH ×2 (09:09→20:20)
[2022-02-07] MEDS: Furosemide 40 MG TAB PO SCH (09:13)
[2022-02-07 12:07] VITALS: BMI 28.1
[2022-02-07] MEDS: Latanoprost 0.005% Ophth Soln 2.5 ml Bottle EA EYE SCH (20:21)
[2022-02-07] MEDS: Topiramate 100 MG TAB PO SCH (20:21)
[2022-02-08] MEDS: Ampicillin/Sulbactam 3 GM in Sodium Chloride 0.9% 100 ML IVPB SCH ×2 (01:23→08:26)
[2022-02-08] MEDS: Albuterol 200 PUFF (6.7GM INHALER) INH SCH ×6 (03:11→23:37)
[2022-02-08] MEDS: Ipratropium/Albuterol Sulfate 4 GM AER IH SCH ×3 (07:00→21:01)
[2022-02-08 07:23] LABS: ALT (SGPT) 27 U/L (8-55); AST (SGOT) 41 U/L (5-34); Alkaline Phosphatase 114 U/L (40-110); Anion Gap 13 mmol/L (10-20); BUN (Urea Nitrogen) 23 mg/dL (9.8-20.1); Bilirubin, Total 0.5 mg/dL (0.2-1.2); Calc. Creatinine Clearance 68 mL/min (70-130); Calcium 8.7 mg/dL (7.8-10.44); Carbon Dioxide 20 mmol/L (23-31); Chloride 110 mmol/L (98-107); Glucose 81 mg/dL (83-110); Mean Corpuscular HGB CONC 31.1 g/dL (32.0-36.0); Mean Corpuscular Hemoglobin 24.7 pg (27.0-31.0); Mean Corpuscular Volume 79.4 fL (78.0-98.0); Mean Platelet Volume 9.8 fL (7.4-10.4); Platelet Count 231 thou/uL (130-400); Potassium 4.1 mmol/L (3.5-5.1); RBC Distribution Width 16.2 % (11.5-14.5); Red Blood Cell (RBC) Count 4.05 mill/uL (4.20-5.40); Sodium 139 mmol/L (136-145)
[2022-02-08] MEDS: Aspirin Chewable 81 MG TAB PO SCH (08:20)
[2022-02-08] MEDS: Famotidine 20 MG TAB PO SCH (08:20)
[2022-02-08] MEDS: Dexamethasone 4 MG TAB PO SCH (08:20)
[2022-02-08] MEDS: Apixaban 5 MG TAB PO SCH ×2 (08:20→20:41)
[2022-02-08] MEDS: Lisinopril 10 MG TAB PO SCH (08:20)
[2022-02-08] MEDS: Topiramate 100 MG TAB PO SCH ×2 (08:21→20:41)
[2022-02-08] MEDS: Ascorbic Acid 500 mg Chewable Tablet PO SCH ×2 (08:21→20:41)
[2022-02-08] MEDS: Furosemide 40 MG TAB PO SCH (08:21)
[2022-02-08] MEDS: Carvedilol 3.125 MG TAB PO SCH (08:21)
[2022-02-08] MEDS: Multivitamin W/ Minerals 1 TAB PO SCH (08:21)
[2022-02-08] MEDS: Rosuvastatin 20 MG TAB PO SCH (08:21)
[2022-02-08 09:17] LABS: Band 5 % (5-11); Lymphocytes 12 % (21-51); MDiff Complete? YES; Monocytes 5 % (0-10); Neutrophil 78 % (42-75); Ovalocytes SLIGHT = 2-5 cells (100X) (0-1/hpf); Platelet Morphology Comment Appears Adequate; Polychromasia SLIGHT = 2-3 cells (100X) (0-2/hpf)
[2022-02-08] MEDS ORDERED: Amoxicillin/Potassium Clav 875 MG TAB PO SCH (10:30)
[2022-02-08] MEDS ORDERED: Lisinopril 10 MG TAB PO SCH (13:15)
[2022-02-08] MEDS: Mometasone/Formoterol 60 PUFF AER INH SCH ×2 (15:14→17:53)
[2022-02-08] MEDS: Carvedilol 6.25 MG TAB PO SCH (16:57)
[2022-02-08] MEDS: Amoxicillin/Potassium Clav 875 MG TAB PO SCH (20:41)
[2022-02-08] MEDS: Latanoprost 0.005% Ophth Soln 2.5 ml Bottle EA EYE SCH (21:00)
[2022-02-09] MEDS: Acetaminophen 325 MG TAB PO PRN ×2 (01:48→13:20)
[2022-02-09] MEDS: Ipratropium/Albuterol Sulfate 4 GM AER IH SCH ×4 (01:48→18:25)
[2022-02-09] MEDS: Lorazepam 2 MG/ML VIAL SLOW IVP PRN (01:48)
[2022-02-09] MEDS: Guaifenesin DM 100-10/5 ML UDCUP PO PRN (03:05)
[2022-02-09] MEDS: Albuterol 200 PUFF (6.7GM INHALER) INH SCH ×5 (03:12→18:25)
[2022-02-09 06:54] LABS: Hemoglobin 10.7 g/dL (12.0-16.0); Mean Corpuscular Hemoglobin 25.2 pg (27.0-31.0); Mean Corpuscular Volume 84.1 fL (78.0-98.0); Mean Platelet Volume 9.6 fL (7.4-10.4); Platelet Count 221 thou/uL (130-400); RBC Distribution Width 16.3 % (11.5-14.5); Red Blood Cell (RBC) Count 4.24 mill/uL (4.20-5.40)
[2022-02-09 07:21] LABS: ALT (SGPT) 26 U/L (8-55); AST (SGOT) 28 U/L (5-34); Alkaline Phosphatase 108 U/L (40-110); Anion Gap 12 mmol/L (10-20); BUN (Urea Nitrogen) 22 mg/dL (9.8-20.1); Bilirubin, Total 0.5 mg/dL (0.2-1.2); Calc. Creatinine Clearance 70 mL/min (70-130); Calcium 9.2 mg/dL (7.8-10.44); Carbon Dioxide 21 mmol/L (23-31); Chloride 108 mmol/L (98-107); Globulin 2.9 g/dL (2.4-3.5); Glucose 88 mg/dL (83-110); Potassium 3.6 mmol/L (3.5-5.1); Protein, Total 5.9 g/dL (5.8-8.1); Sodium 137 mmol/L (136-145)
[2022-02-09] MEDS: Mometasone/Formoterol 60 PUFF AER INH SCH ×2 (07:37→18:26)
[2022-02-09 07:58] LABS: Band 6 % (5-11); Hypochromia SLIGHT = 6-15 cells (100X) (0-5/hpf); Lymphocytes 11 % (21-51); MDiff Complete? YES; Monocytes 6 % (0-10); Neutrophil 76 % (42-75); Ovalocytes MODERATE= 6-15 cells (100X) (0-1/hpf); Platelet Morphology Comment Appears Adequate; Polychromasia SLIGHT = 2-3 cells (100X) (0-2/hpf); Reactive Lymphocytes 1 % (0-10)
[2022-02-09] MEDS: Apixaban 5 MG TAB PO SCH ×2 (08:11→19:55)
[2022-02-09] MEDS: Amoxicillin/Potassium Clav 875 MG TAB PO SCH ×2 (08:11→19:55)
[2022-02-09] MEDS: Ascorbic Acid 500 mg Chewable Tablet PO SCH ×2 (08:11→19:55)
[2022-02-09] MEDS: Rosuvastatin 20 MG TAB PO SCH (08:12)
[2022-02-09] MEDS: Aspirin Chewable 81 MG TAB PO SCH (08:12)
[2022-02-09] MEDS: Multivitamin W/ Minerals 1 TAB PO SCH (08:12)
[2022-02-09] MEDS: Famotidine 20 MG TAB PO SCH (08:12)
[2022-02-09] MEDS: Carvedilol 6.25 MG TAB PO SCH ×2 (08:12→16:55)
[2022-02-09] MEDS: Furosemide 40 MG TAB PO SCH (08:12)
[2022-02-09] MEDS: Topiramate 100 MG TAB PO SCH ×2 (08:13→19:55)
[2022-02-09] MEDS: Benzonatate 100 MG CAP PO SCH ×3 (08:13→19:55)
[2022-02-09] MEDS ORDERED: Lisinopril 20 MG TAB PO SCH (09:00)
[2022-02-09] MEDS: Latanoprost 0.005% Ophth Soln 2.5 ml Bottle EA EYE SCH (19:56)
[2022-02-10] MEDS: Albuterol 200 PUFF (6.7GM INHALER) INH SCH ×7 (01:14→22:42)
[2022-02-10] MEDS: Ipratropium/Albuterol Sulfate 4 GM AER IH SCH ×4 (01:41→18:49)
[2022-02-10] MEDS: Mometasone 100 MCG/Formoterol 5 MCG 120 PUFF INHALER INH SCH ×2 (06:35→18:49)
[2022-02-10 07:31] LABS: ALT (SGPT) 22 U/L (8-55); AST (SGOT) 21 U/L (5-34); Alkaline Phosphatase 98 U/L (40-110); Anion Gap 12 mmol/L (10-20); BUN (Urea Nitrogen) 19 mg/dL (9.8-20.1); Bilirubin, Total 0.6 mg/dL (0.2-1.2); Calc. Creatinine Clearance 72 mL/min (70-130); Calcium 9.1 mg/dL (7.8-10.44); Carbon Dioxide 23 mmol/L (23-31); Chloride 106 mmol/L (98-107); Globulin 2.9 g/dL (2.4-3.5); Glucose 87 mg/dL (83-110); Potassium 3.3 mmol/L (3.5-5.1); Protein, Total 5.9 g/dL (5.8-8.1); Sodium 138 mmol/L (136-145)
[2022-02-10 07:56] LABS: Eosinophils 1 % (0-10); Hemoglobin 10.3 g/dL (12.0-16.0); Lymphocytes 10 % (21-51); MDiff Complete? YES; Mean Corpuscular HGB CONC 31.2 g/dL (32.0-36.0); Mean Corpuscular Hemoglobin 24.8 pg (27.0-31.0); Mean Corpuscular Volume 79.3 fL (78.0-98.0); Mean Platelet Volume 9.5 fL (7.4-10.4); Monocytes 7 % (0-10); Neutrophil 77 % (42-75); Ovalocytes SLIGHT = 2-5 cells (100X) (0-1/hpf); Platelet Clumps SLIGHT; Platelet Count 262 thou/uL (130-400); Platelet Morphology Comment Appears Adequate; Polychromasia SLIGHT = 2-3 cells (100X) (0-2/hpf); RBC Distribution Width 15.9 % (11.5-14.5); Reactive Lymphocytes 5 % (0-10); Red Blood Cell (RBC) Count 4.14 mill/uL (4.20-5.40); White Blood Cell (WBC) Count 15.4 thou/uL (4.8-10.8)
[2022-02-10] MEDS: Apixaban 5 MG TAB PO SCH ×2 (08:41→20:59)
[2022-02-10] MEDS: Multivitamin W/ Minerals 1 TAB PO SCH (08:41)
[2022-02-10] MEDS: Carvedilol 6.25 MG TAB PO SCH ×2 (08:41→16:37)
[2022-02-10] MEDS: Ascorbic Acid 500 mg Chewable Tablet PO SCH ×2 (08:41→20:59)
[2022-02-10] MEDS: Famotidine 20 MG TAB PO SCH (08:41)
[2022-02-10] MEDS: Benzonatate 100 MG CAP PO SCH ×3 (08:41→20:59)
[2022-02-10] MEDS: Amoxicillin/Potassium Clav 875 MG TAB PO SCH ×2 (08:41→20:59)
[2022-02-10] MEDS: Rosuvastatin 20 MG TAB PO SCH (08:41)
[2022-02-10] MEDS: Aspirin Chewable 81 MG TAB PO SCH (08:41)
[2022-02-10] MEDS: Lisinopril 20 MG TAB PO SCH (08:42)
[2022-02-10] MEDS: Topiramate 100 MG TAB PO SCH ×2 (08:42→20:59)
[2022-02-10] MEDS: Potassium Chloride 10 MEQ TAB PO SCH (08:42)
[2022-02-10] MEDS: Furosemide 40 MG TAB PO SCH (08:42)
[2022-02-10] MEDS: hydrALAZINE 20 MG/ML VIAL SLOW IVP PRN (09:04)
[2022-02-10] MEDS: Mometasone/Formoterol 60 PUFF AER INH SCH (13:08)
[2022-02-10] MEDS: Acetaminophen 325 MG TAB PO PRN (20:59)
[2022-02-10] MEDS: Guaifenesin DM 100-10/5 ML UDCUP PO PRN (21:00)
[2022-02-10] MEDS: Latanoprost 0.005% Ophth Soln 2.5 ml Bottle EA EYE SCH (21:00)
[2022-02-11] MEDS: Ipratropium/Albuterol Sulfate 4 GM AER IH SCH ×4 (02:51→18:20)
[2022-02-11] MEDS: Albuterol 200 PUFF (6.7GM INHALER) INH SCH ×6 (04:21→22:22)
[2022-02-11] MEDS: Mometasone 100 MCG/Formoterol 5 MCG 120 PUFF INHALER INH SCH ×2 (06:54→18:21)
[2022-02-11 08:15] LABS: ALT (SGPT) 18 U/L (8-55); AST (SGOT) 16 U/L (5-34); Albumin 2.9 g/dL (3.4-4.8); Alkaline Phosphatase 93 U/L (40-110); Anion Gap 12 mmol/L (10-20); BUN (Urea Nitrogen) 18 mg/dL (9.8-20.1); Bilirubin, Total 0.6 mg/dL (0.2-1.2); Calc. Creatinine Clearance 70 mL/min (70-130); Calcium 8.9 mg/dL (7.8-10.44); Carbon Dioxide 21 mmol/L (23-31); Chloride 108 mmol/L (98-107); Glucose 95 mg/dL (83-110); Potassium 3.4 mmol/L (3.5-5.1); Protein, Total 5.9 g/dL (5.8-8.1); Sodium 138 mmol/L (136-145)
[2022-02-11] MEDS: Rosuvastatin 20 MG TAB PO SCH (08:34)
[2022-02-11] MEDS: Potassium Chloride 10 MEQ TAB PO SCH (08:34)
[2022-02-11] MEDS: Topiramate 100 MG TAB PO SCH ×2 (08:34→20:30)
[2022-02-11] MEDS: Multivitamin W/ Minerals 1 TAB PO SCH (08:34)
[2022-02-11] MEDS: Ascorbic Acid 500 mg Chewable Tablet PO SCH ×2 (08:34→20:30)
[2022-02-11] MEDS: Amoxicillin/Potassium Clav 875 MG TAB PO SCH ×2 (08:35→20:31)
[2022-02-11] MEDS: Famotidine 20 MG TAB PO SCH (08:35)
[2022-02-11] MEDS: Lisinopril 20 MG TAB PO SCH (08:35)
[2022-02-11] MEDS: Aspirin Chewable 81 MG TAB PO SCH (08:35)
[2022-02-11] MEDS: Apixaban 5 MG TAB PO SCH ×2 (08:35→20:30)
[2022-02-11] MEDS: Carvedilol 6.25 MG TAB PO SCH ×2 (08:35→17:06)
[2022-02-11] MEDS: Benzonatate 100 MG CAP PO SCH ×3 (08:35→20:30)
[2022-02-11] MEDS: Furosemide 40 MG TAB PO SCH (08:36)
[2022-02-11 10:50] LABS: Band 9 % (5-11); Eosinophils 2 % (0-10); Hemoglobin 10.2 g/dL (12.0-16.0); Lymphocytes 8 % (21-51); MDiff Complete? YES; Mean Corpuscular HGB CONC 31.4 g/dL (32.0-36.0); Mean Corpuscular Hemoglobin 24.9 pg (27.0-31.0); Mean Corpuscular Volume 79.4 fL (78.0-98.0); Mean Platelet Volume 9.1 fL (7.4-10.4); Monocytes 8 % (0-10); Myelocyte 1 % (0-0); Neutrophil 72 % (42-75); Platelet Count 288 thou/uL (130-400); Platelet Morphology Comment Appears Adequate; RBC Distribution Width 16.2 % (11.5-14.5); RBC Morphology Normal; Red Blood Cell (RBC) Count 4.09 mill/uL (4.20-5.40); White Blood Cell (WBC) Count 14.4 thou/uL (4.8-10.8)
[2022-02-11] MEDS: Acetaminophen 325 MG TAB PO PRN ×2 (15:24→20:31)
[2022-02-11] MEDS: Ondansetron PF 4 MG/2 ML Vial IVP PRN (18:29)
[2022-02-11] MEDS: Latanoprost 0.005% Ophth Soln 2.5 ml Bottle EA EYE SCH (20:32)
[2022-02-11] MEDS ORDERED: Gabapentin 100 MG CAP PO SCH (22:15)
[2022-02-12] MEDS: Guaifenesin DM 100-10/5 ML UDCUP PO PRN (00:06)
[2022-02-12] MEDS: Acetaminophen 325 MG TAB PO PRN (00:06)
[2022-02-12] MEDS: Ipratropium/Albuterol Sulfate 4 GM AER IH SCH ×3 (00:11→13:38)
[2022-02-12] MEDS: Albuterol 200 PUFF (6.7GM INHALER) INH SCH ×4 (02:18→14:35)
[2022-02-12] MEDS: Mometasone 100 MCG/Formoterol 5 MCG 120 PUFF INHALER INH SCH (05:49)
[2022-02-12] MEDS: Aspirin Chewable 81 MG TAB PO SCH (08:11)
[2022-02-12] MEDS: Benzonatate 100 MG CAP PO SCH ×2 (08:11→15:56)
[2022-02-12] MEDS: Rosuvastatin 20 MG TAB PO SCH (08:11)
[2022-02-12] MEDS: Potassium Chloride 10 MEQ TAB PO SCH (08:11)
[2022-02-12] MEDS: Amoxicillin/Potassium Clav 875 MG TAB PO SCH (08:11)
[2022-02-12] MEDS: Apixaban 5 MG TAB PO SCH (08:12)
[2022-02-12] MEDS: Topiramate 100 MG TAB PO SCH (08:12)
[2022-02-12] MEDS: Multivitamin W/ Minerals 1 TAB PO SCH (08:12)
[2022-02-12] MEDS: Famotidine 20 MG TAB PO SCH (08:12)
[2022-02-12] MEDS: Ascorbic Acid 500 mg Chewable Tablet PO SCH (08:12)
[2022-02-12] MEDS: Furosemide 40 MG TAB PO SCH (08:12)
[2022-02-12] MEDS: Gabapentin 100 MG CAP PO SCH ×2 (08:13→15:56)
[2022-02-12] MEDS: Carvedilol 6.25 MG TAB PO SCH ×2 (08:22→17:01)
[2022-02-12] MEDS: Lisinopril 20 MG TAB PO SCH (09:24)
[2022-02-12 16:26] VITALS: TEMP 97.3
[2022-02-12 17:02] VITALS: BP 114/74
== END 2022-02-12 17:39 | disposition swing bed (61) | DRG 853 ==
LOC: ERS 11:34 → ERHOLD 15:15 → CCU 20:20 → T4-B 02-07 16:56
PROVIDERS: ADMIT Student in an Organized Health Care Education/Training Program; ATTEND Emergency Medicine
PROC: 0T778DZ Dilation of Left Ureter with Intraluminal Device, Via Natural or Artificial Opening Endoscopic (ICD-10-PCS; 2022-02-01)
PROC: 5A1945Z Respiratory Ventilation, 24-96 Consecutive Hours (ICD-10-PCS; 2022-02-01)
PROC: 0BH17EZ Insertion of Endotracheal Airway into Trachea, Via Natural or Artificial Opening (ICD-10-PCS; 2022-02-01)
PROC: 8E0ZXY6 Isolation (ICD-10-PCS; 2022-02-01)
PROC: 3E03329 Introduction of Other Anti-infective into Peripheral Vein, Percutaneous Approach (ICD-10-PCS; 2022-02-01)
PROC: 06HY33Z Insertion of Infusion Device into Lower Vein, Percutaneous Approach (ICD-10-PCS; 2022-02-01)
PROC: 3E033XZ Introduction of Vasopressor into Peripheral Vein, Percutaneous Approach (ICD-10-PCS; 2022-02-01)
PROC: BT1F1ZZ Fluoroscopy of Left Kidney, Ureter and Bladder using Low Osmolar Contrast (ICD-10-PCS; 2022-02-01)
PROC: 0F9430Z Drainage of Gallbladder with Drainage Device, Percutaneous Approach (ICD-10-PCS; principal; 2022-02-02)
PROC: 3E04329 Introduction of Other Anti-infective into Central Vein, Percutaneous Approach (ICD-10-PCS; 2022-02-02)
PROC: 3E043XZ Introduction of Vasopressor into Central Vein, Percutaneous Approach (ICD-10-PCS; 2022-02-02)
PROC: 5A0945A Assistance with Respiratory Ventilation, 24-96 Consecutive Hours, High Flow/Velocity Cannula (ICD-10-PCS; 2022-02-04)
DX: A41.81 Sepsis due to Enterococcus (principal); A41.4 Sepsis due to anaerobes; Z66 Do not resuscitate; Z51.5 Encounter for palliative care; A41.89 Other specified sepsis; A41.51 Sepsis due to Escherichia coli [E. coli]; R65.21 Severe sepsis with septic shock; U07.1 COVID-19; J12.82 Pneumonia due to coronavirus disease 2019; J96.01 Acute respiratory failure with hypoxia; I21.A1 Myocardial infarction type 2; K80.00 Calculus of gallbladder with acute cholecystitis without obstruction; N13.6 Pyonephrosis; N17.9 Acute kidney failure, unspecified; I48.21 Permanent atrial fibrillation; G93.40 Encephalopathy, unspecified; E87.70 Fluid overload, unspecified; I25.10 Atherosclerotic heart disease of native coronary artery without angina pectoris; G25.0 Essential tremor; N39.46 Mixed incontinence; G25.81 Restless legs syndrome; F41.9 Anxiety disorder, unspecified; E87.6 Hypokalemia; E78.5 Hyperlipidemia, unspecified; I73.9 Peripheral vascular disease, unspecified; N18.2 Chronic kidney disease, stage 2 (mild); Z60.2 Problems related to living alone; E83.42 Hypomagnesemia; R94.31 Abnormal electrocardiogram [ECG] [EKG]; E78.00 Pure hypercholesterolemia, unspecified; J44.9 Chronic obstructive pulmonary disease, unspecified; G40.909 Epilepsy, unspecified, not intractable, without status epilepticus; D63.1 Anemia in chronic kidney disease; I12.9 Hypertensive chronic kidney disease with stage 1 through stage 4 chronic kidney disease, or unspecified chronic kidney disease; E86.0 Dehydration; R19.5 Other fecal abnormalities; R33.9 Retention of urine, unspecified; R00.1 Bradycardia, unspecified; R73.9 Hyperglycemia, unspecified; T38.0X5A Adverse effect of glucocorticoids and synthetic analogues, initial encounter; Z79.899 Other long term (current) drug therapy; Z79.82 Long term (current) use of aspirin; Z78.1 Physical restraint status; Z79.01 Long term (current) use of anticoagulants; Z79.02 Long term (current) use of antithrombotics/antiplatelets; Z98.890 Other specified postprocedural states; Z95.5 Presence of coronary angioplasty implant and graft; Z90.710 Acquired absence of both cervix and uterus; Z83.6 Family history of other diseases of the respiratory system; Z82.49 Family history of ischemic heart disease and other diseases of the circulatory system; Z87.891 Personal history of nicotine dependence; Z95.828 Presence of other vascular implants and grafts
CPT/HCPCS: 36415; 36416; 36600; 49020; 71045; 74177; 74420; 77002; 80053; 80202; 81003; 81015; 82274; 82306; 82550; 82553; 82805; 83036; 83605; 83690; 83735; 83880; 84145; 84484; 85025; 85610; 85730; 87040; 87070; 87077; 87086; 87186; 87205; 87804; 93005; 93010; 94002; 94003; 96361; 96365; 96366; C1729; C2617; J0295; J0360; J0692; J1100; J1650; J1940; J2060; J2405; J2543; J2704; J3370; J3475; J3480; J3490; J3535; J7050; J7070; J8540; Q9967; U0002

== ENCOUNTER 2022-03-28 12:34 | Outpatient (CLI) | payer MEDICARE, MEDICAID | END 2022-03-28 12:35 | disposition home or self-care (01) | LOC: BICRAD 12:34 | PROVIDERS: ATTEND Urology | DX: N20.0 Calculus of kidney (principal); Z96.0 Presence of urogenital implants | CPT/HCPCS: 74018; 81001; 87086 ==

== ENCOUNTER 2022-05-18 10:20 | Outpatient (CLI) | payer MEDICARE, OTHER | END 2022-05-18 10:21 | disposition home or self-care (01) | LOC: BICRAD 10:20 | PROVIDERS: ATTEND Family Medicine | DX: M54.50 Low back pain, unspecified (principal); M47.816 Spondylosis without myelopathy or radiculopathy, lumbar region; I25.10 Atherosclerotic heart disease of native coronary artery without angina pectoris; D50.9 Iron deficiency anemia, unspecified; E53.8 Deficiency of other specified B group vitamins; R63.4 Abnormal weight loss | CPT/HCPCS: 36415; 72100; 80053; 82607; 82728; 83540; 83550; 84443; 85025 ==

== ENCOUNTER 2022-09-19 08:16 | Outpatient (CLI) | payer MEDICARE, OTHER ==
[2022-09-19] MEDS ORDERED: Iopamidol-370 76% 500 ML 1 ML ONE (09:05)
== END 2022-09-19 08:17 | disposition home or self-care (01) ==
LOC: BICCT 08:16
PROVIDERS: ATTEND Urology
DX: N28.9 Disorder of kidney and ureter, unspecified (principal); D17.71 Benign lipomatous neoplasm of kidney; N20.0 Calculus of kidney; R91.1 Solitary pulmonary nodule
CPT/HCPCS: 74178; 82565; Q9967

== ENCOUNTER 2022-10-12 11:23 | Emergency (ER) | payer MEDICARE, OTHER ==
[2022-10-12 11:58] LABS: #Eosinphils 0.2 thou/uL (0.0-0.7); #Lymphocytes 1.4 thou/uL (1.20-3.40); #Monocytes 0.5 thou/uL (0.11-0.59); #Neutrophils 4.4 thou/uL (1.40-6.50); %Basophils 0.8 % (0.0-1.0); %Eosinophils 2.6 % (0.0-10.0); %Lymphocytes 21.2 % (21.0-51.0); %Neutrophils 68.5 % (42.0-75.0); Mean Corpuscular HGB CONC 32.4 g/dL (32.0-36.0); Mean Corpuscular Hemoglobin 27.4 pg (27.0-31.0); Mean Corpuscular Volume 84.5 fl (78.0-98.0); Mean Platelet Volume 8.8 fL (7.4-10.4); Platelet Count 153 10x3/uL (130-400); RBC Distribution Width 14.3 % (11.5-14.5); Red Blood Cell (RBC) Count 4.02 mill/uL (4.20-5.40); White Blood Cell (WBC) Count 6.4 10x3/uL (4.8-10.8)
[2022-10-12 12:14] LABS: INR-International Normal Ratio 1.1; Prothrombin Time 15.1 sec (12.0-14.7)
[2022-10-12 12:19] LABS: ALT (SGPT) 11 U/L (8-55); AST (SGOT) 13 U/L (5-34); Albumin 3.7 g/dL (3.4-4.8); Alkaline Phosphatase 99 U/L (40-110); Anion Gap 11 mmol/L (10-20); BUN (Urea Nitrogen) 21 mg/dL (9.8-20.1); Bilirubin, Total 0.4 mg/dL (0.2-1.2); Calc. Creatinine Clearance 0 mL/min (70-130); Calcium 9.2 mg/dL (7.8-10.44); Carbon Dioxide 24 mmol/L (23-31); Chloride 112 mmol/L (98-107); Estimated GFR 69; Globulin 2.7 g/dL (2.4-3.5); Glucose 107 mg/dL (83-110); Potassium 3.8 mmol/L (3.5-5.1); Protein, Total 6.4 g/dL (5.8-8.1); Sodium 143 mmol/L (136-145)
== END 2022-10-12 15:00 | disposition left against medical advice (07) ==
LOC: ERS 11:23
DX: Z53.21 Procedure and treatment not carried out due to patient leaving prior to being seen by health care provider (principal)
CPT/HCPCS: 36415; 80053; 85025; 85610; 85730; 94760

== ENCOUNTER 2023-01-09 17:56 | Inpatient (IN) | payer MEDICARE, MEDICAID ==
[2023-01-09] MEDS ORDERED: Lidocaine 1% w/Epinephrine 1:100K 20 ML VIAL ONE (18:30)
[2023-01-09] MEDS ORDERED: Lidocaine 2% PF 5 ML VIAL ONE ×2 (18:30→18:31)
[2023-01-09] MEDS ORDERED: fentaNYL 50 mcg/mL 1 mL Vial ONE ×2 (18:53→22:13)
[2023-01-09 19:02] LABS: #Eosinphils 0.1 thou/uL (0.0-0.7); #Monocytes 0.5 thou/uL (0.11-0.59); #Neutrophils 6.7 thou/uL (1.40-6.50); %Basophils 0.5 % (0.0-1.0); %Eosinophils 1.6 % (0.0-10.0); %Lymphocytes 12.1 % (21.0-51.0); %Monocytes 5.9 % (0.0-10.0); %Neutrophils 78.8 % (42.0-75.0); Hemoglobin 9.3 g/dL (12.0-16.0); Mean Corpuscular HGB CONC 28.9 g/dL (32.0-36.0); Mean Corpuscular Volume 72.9 fl (78.0-98.0); Mean Platelet Volume 11.1 fL (7.4-10.4); Platelet Count 229 10x3/uL (130-400); RBC Distribution Width 17.3 % (11.5-14.5); Red Blood Cell (RBC) Count 4.42 mill/uL (4.20-5.40); White Blood Cell (WBC) Count 8.5 10x3/uL (4.8-10.8)
[2023-01-09 19:26] LABS: ALT (SGPT) 13 U/L (8-55); AST (SGOT) 20 U/L (5-34); Albumin 4.1 g/dL (3.4-4.8); Alkaline Phosphatase 115 U/L (40-110); Anion Gap 14 mmol/L (10-20); BUN (Urea Nitrogen) 26 mg/dL (9.8-20.1); Bilirubin, Total 0.3 mg/dL (0.2-1.2); Calc. Creatinine Clearance 0 mL/min (70-130); Calcium 9.1 mg/dL (7.8-10.44); Carbon Dioxide 22 mmol/L (23-31); Chloride 108 mmol/L (98-107); Estimated GFR 54; Globulin 2.9 g/dL (2.4-3.5); Glucose 114 mg/dL (83-110); Potassium 3.4 mmol/L (3.5-5.1); Sodium 141 mmol/L (136-145)
[2023-01-09 19:42] LABS: CellaVision Operator ID LAB.KB; Hypochromia SLIGHT = 6-15 cells HPF (0-5); Ovalocytes SLIGHT = 2-5 cells HPF (0-1); Platelet Morphology Comment Platelets Normal; Polychromasia SLIGHT = 2-3 cells HPF (0-2)
[2023-01-09] MEDS ORDERED: Potassium Chloride 20 MEQ TAB ONE (20:31)
[2023-01-09] MEDS ORDERED: HYDROcodone/Acetaminophen 5/325 mg Tablet ONE (21:27)
[2023-01-09] MEDS ORDERED: Ipratropium/Albuterol 3 ML NEB NEB PRN (21:56)
[2023-01-09] MEDS ORDERED: HumaLOG 300 UNITS/3 ML VIAL SC PRN ×2 (21:56)
[2023-01-09] MEDS ORDERED: Dextrose 5% in Water 1,000 ML IV PRN (21:56)
[2023-01-09] MEDS ORDERED: Dextrose 50% Abboject 50 ML SYRINGE SLOW IVP PRN (21:56)
[2023-01-09] MEDS ORDERED: Ondansetron PF 4 MG/2 ML Vial IVP PRN (21:56)
[2023-01-09] MEDS ORDERED: Sodium Chloride 0.9% 1,000 ML IV SCH (22:00)
[2023-01-09] MEDS ORDERED: Albuterol 200 PUFF (6.7GM INHALER) INH PRN (22:01)
[2023-01-09] MEDS: Morphine 2 MG/ML VIAL SLOW IVP PRN (23:10)
[2023-01-09] MEDS: Acetaminophen 325 MG TAB PO SCH (23:12)
[2023-01-09 23:33] VITALS: BMI 28.5
[2023-01-10] MEDS: Morphine 2 MG/ML VIAL SLOW IVP PRN ×5 (02:58→22:00)
[2023-01-10] MEDS: Acetaminophen 325 MG TAB PO SCH ×5 (04:22→22:31)
[2023-01-10 06:47] LABS: #Basophils 0.1 thou/uL (0.0-0.2); #Eosinphils 0.2 thou/uL (0.0-0.7); #Monocytes 0.7 thou/uL (0.11-0.59); #Neutrophils 7.3 thou/uL (1.40-6.50); %Basophils 0.5 % (0.0-1.0); %Eosinophils 2.4 % (0.0-10.0); %Lymphocytes 12.2 % (21.0-51.0); %Neutrophils 77.4 % (42.0-75.0); Hemoglobin 8.5 g/dL (12.0-16.0); Mean Corpuscular Volume 72.5 fl (78.0-98.0); Mean Platelet Volume 11.6 fL (7.4-10.4); Platelet Count 186 10x3/uL (130-400); RBC Distribution Width 17.3 % (11.5-14.5); Red Blood Cell (RBC) Count 4.04 mill/uL (4.20-5.40); White Blood Cell (WBC) Count 9.4 10x3/uL (4.8-10.8)
[2023-01-10] MEDS ORDERED: Magnesium 2 GM/50 ML(in water) 2 GM in Premix Bag 1 BAG IVPB SCH (07:00)
[2023-01-10 07:08] LABS: Anion Gap 11 mmol/L (10-20); BUN (Urea Nitrogen) 20 mg/dL (9.8-20.1); Calc. Creatinine Clearance 61 mL/min (70-130); Calcium 8.4 mg/dL (7.8-10.44); Carbon Dioxide 20 mmol/L (23-31); Chloride 112 mmol/L (98-107); Estimated GFR 71; Glucose 117 mg/dL (83-110); Potassium 4.1 mmol/L (3.5-5.1); Sodium 139 mmol/L (136-145)
[2023-01-10 07:13] LABS: INR-International Normal Ratio 1.2; Prothrombin Time 15.7 sec (12.0-14.7)
[2023-01-10 07:14] LABS: PTT 33.7 sec (22.9-36.1)
[2023-01-10] MEDS ORDERED: Potassium Chloride 20 MEQ TAB PO SCH (07:15)
[2023-01-10] MEDS ORDERED: TETANUS, DIPHTHERIA TOX,ADULT (TDVAX) 0.5 ML VIAL IM ONE (07:18)
[2023-01-10] MEDS ORDERED: CEFAZOLIN 2 GM in Sodium Chloride 0.9% 100 ML IVPB SCH (07:45)
[2023-01-10] MEDS ORDERED: Potassium Chloride 20 MEQ in Premix Bag 1 BAG IVPB SCH (07:45)
[2023-01-10] MEDS: Lactated Ringer's 1,000 ML IV SCH ×2 (08:25→22:16)
[2023-01-10] MEDS: Famotidine 20 MG TAB PO SCH ×2 (08:35→22:05)
[2023-01-10] MEDS: Topiramate 100 MG TAB PO SCH ×2 (08:35→22:04)
[2023-01-10] MEDS: Gabapentin 100 MG CAP PO SCH ×3 (08:35→22:04)
[2023-01-10] MEDS: Oxybutynin ER 5 MG TAB PO SCH (08:40)
[2023-01-10] MEDS: Polyethylene Glycol 3350 17 GM Packet PO SCH (08:40)
[2023-01-10] MEDS: Saccharomyces boulardii 250 MG CAP PO SCH (08:58)
[2023-01-10] MEDS: Senokot S 8.6-50 MG TAB PO SCH ×2 (08:58→22:04)
[2023-01-10] MEDS: Ascorbic Acid 500 mg Chewable Tablet PO SCH ×2 (09:49→22:05)
[2023-01-10] MEDS: Sertraline 25 MG TAB PO SCH (09:50)
[2023-01-10] MEDS ORDERED: fentaNYL 50 mcg/mL 1 mL Vial ONE ×2 (12:57→15:19)
[2023-01-10] MEDS ORDERED: fentaNYL PF 100 MCG/2 ML SYRINGE ONE (13:04)
[2023-01-10] MEDS ORDERED: Sodium Chloride 0.9% 100 ML ONE (13:13)
[2023-01-10] MEDS ORDERED: CEFAZOLIN 2 GM VIAL ONE (13:13)
[2023-01-10] MEDS ORDERED: PROPOFOL 200 MG/20 ML VIAL ONE (13:20)
[2023-01-10] MEDS ORDERED: Labetalol HCl 100 MG/20 ML VIAL ONE (13:20)
[2023-01-10] MEDS ORDERED: Rocuronium Bromide 10 MG/ML (10ML VIAL) ONE (13:20)
[2023-01-10] MEDS ORDERED: NEOSTIGMINE 3 MG/3 ML SYR 3 MG/3 ML SYRINGE ONE (13:20)
[2023-01-10] MEDS ORDERED: Glycopyrrolate 0.2 MG/ML 5 ML SYRINGE ONE (13:20)
[2023-01-10] MEDS ORDERED: Ondansetron PF 4 MG/2 ML Vial ONE (13:20)
[2023-01-10] MEDS ORDERED: Lidocaine 1% PF 5 ML VIAL ONE (13:20)
[2023-01-10] MEDS ORDERED: Dexamethasone 20 MG/5 ML VIAL ONE (13:20)
[2023-01-10] MEDS ORDERED: SUGAMMADEX SODIUM 200 MG/2 ML VIAL ONE (14:28)
[2023-01-10] MEDS ORDERED: Ferrous Sulfate 325 MG TAB PO SCH (17:00)
[2023-01-10] MEDS ORDERED: Rosuvastatin 10 MG TAB PO SCH (21:00)
[2023-01-10] MEDS: Rosuvastatin 20 MG TAB PO SCH (22:05)
[2023-01-10] MEDS: CEFAZOLIN 2 GM in Sodium Chloride 0.9% 100 ML IVPB SCH (22:15)
[2023-01-11] MEDS: Acetaminophen 325 MG TAB PO SCH ×4 (04:19→20:59)
[2023-01-11] MEDS: Morphine 2 MG/ML VIAL SLOW IVP PRN ×3 (04:25→16:26)
[2023-01-11] MEDS: CEFAZOLIN 2 GM in Sodium Chloride 0.9% 100 ML IVPB SCH (05:03)
[2023-01-11 05:04] LABS: #Eosinphils 0.2 thou/uL (0.0-0.7); #Monocytes 0.6 thou/uL (0.11-0.59); #Neutrophils 7.2 thou/uL (1.40-6.50); %Basophils 0.5 % (0.0-1.0); %Eosinophils 1.8 % (0.0-10.0); %Lymphocytes 10.2 % (21.0-51.0); %Monocytes 6.2 % (0.0-10.0); %Neutrophils 80.8 % (42.0-75.0); Hemoglobin 8.1 g/dL (12.0-16.0); Mean Corpuscular HGB CONC 27.6 g/dL (32.0-36.0); Mean Corpuscular Hemoglobin 21.1 pg (27.0-31.0); Platelet Count 172 10x3/uL (130-400); RBC Distribution Width 17.7 % (11.5-14.5); Red Blood Cell (RBC) Count 3.83 mill/uL (4.20-5.40); White Blood Cell (WBC) Count 8.9 10x3/uL (4.8-10.8)
[2023-01-11 05:29] LABS: Anion Gap 10 mmol/L (10-20); BUN (Urea Nitrogen) 12 mg/dL (9.8-20.1); Calc. Creatinine Clearance 63 mL/min (70-130); Calcium 8.5 mg/dL (7.8-10.44); Carbon Dioxide 21 mmol/L (23-31); Chloride 111 mmol/L (98-107); Estimated GFR 73; Glucose 120 mg/dL (83-110); Phosphorus 2.9 mg/dL (2.3-4.7); Potassium 4.9 mmol/L (3.5-5.1); Sodium 137 mmol/L (136-145)
[2023-01-11 06:48] LABS: Anisocytosis SLIGHT = 6-15 cells HPF (0-5); Burr Cells SLIGHT = 2-5 cells HPF (0-1); Elliptocytes SLIGHT = 2-5 cells HPF (0-1); Microcytosis SLIGHT = 6-15 cells HPF (0-5); Platelet Morphology Comment Platelets Normal; Polychromasia SLIGHT = 2-3 cells HPF (0-2)
[2023-01-11 07:01] LABS: Mean Corpuscular Volume 76.5 fl (78.0-98.0)
[2023-01-11] MEDS ORDERED: Ferrous Sulfate 325 MG TAB PO SCH (08:00)
[2023-01-11] MEDS ORDERED: Cyclobenzaprine 10 MG TAB PO PRN (09:34)
[2023-01-11] MEDS: Oxybutynin ER 5 MG TAB PO SCH (09:46)
[2023-01-11] MEDS: Polyethylene Glycol 3350 17 GM Packet PO SCH (09:46)
[2023-01-11] MEDS: Ferrous Sulfate 325 MG TAB PO SCH ×2 (09:47→21:04)
[2023-01-11] MEDS: Saccharomyces boulardii 250 MG CAP PO SCH (09:47)
[2023-01-11] MEDS: Furosemide 40 MG TAB PO SCH (09:47)
[2023-01-11] MEDS: Gabapentin 300 MG CAP PO SCH ×3 (09:47→21:05)
[2023-01-11] MEDS: Sertraline 25 MG TAB PO SCH (09:47)
[2023-01-11] MEDS: Ascorbic Acid 500 mg Chewable Tablet PO SCH ×2 (09:47→21:05)
[2023-01-11] MEDS: Senokot S 8.6-50 MG TAB PO SCH ×2 (09:47→21:01)
[2023-01-11] MEDS: Topiramate 100 MG TAB PO SCH ×2 (09:48→21:04)
[2023-01-11] MEDS: Acetaminophen/Codeine 30-300mg Tablet PO SCH ×3 (11:47→21:01)
[2023-01-11] MEDS: Lactated Ringer's 1,000 ML IV SCH (11:47)
[2023-01-11] MEDS: Rosuvastatin 20 MG TAB PO SCH (20:59)
[2023-01-11] MEDS: Melatonin 3 MG TAB PO SCH (21:04)
[2023-01-12] MEDS: Acetaminophen 325 MG TAB PO SCH ×4 (03:48→21:13)
[2023-01-12] MEDS: Acetaminophen/Codeine 30-300mg Tablet PO SCH ×4 (03:49→21:06)
[2023-01-12 05:57] LABS: Hemoglobin 7.6 g/dL (12.0-16.0)
[2023-01-12] MEDS: Senokot S 8.6-50 MG TAB PO SCH ×2 (09:00→21:08)
[2023-01-12] MEDS: Topiramate 100 MG TAB PO SCH ×2 (09:00→21:12)
[2023-01-12] MEDS: Sertraline 25 MG TAB PO SCH (09:00)
[2023-01-12] MEDS: Oxybutynin ER 5 MG TAB PO SCH (09:00)
[2023-01-12] MEDS: Saccharomyces boulardii 250 MG CAP PO SCH (09:00)
[2023-01-12] MEDS: Gabapentin 300 MG CAP PO SCH ×3 (09:01→21:12)
[2023-01-12] MEDS: Furosemide 40 MG TAB PO SCH (09:01)
[2023-01-12] MEDS: Ferrous Sulfate 325 MG TAB PO SCH ×2 (09:01→21:11)
[2023-01-12] MEDS: Ascorbic Acid 500 mg Chewable Tablet PO SCH ×2 (09:01→21:11)
[2023-01-12] MEDS: Polyethylene Glycol 3350 17 GM Packet PO SCH (09:01)
[2023-01-12] MEDS: Morphine 2 MG/ML VIAL SLOW IVP PRN (09:13)
[2023-01-12] MEDS: Rosuvastatin 20 MG TAB PO SCH (21:08)
[2023-01-12] MEDS: Melatonin 3 MG TAB PO SCH (21:08)
[2023-01-13] MEDS: Morphine 2 MG/ML VIAL SLOW IVP PRN (03:02)
[2023-01-13] MEDS: Acetaminophen/Codeine 30-300mg Tablet PO SCH ×5 (03:52→21:14)
[2023-01-13] MEDS: Acetaminophen 325 MG TAB PO SCH ×5 (03:52→21:15)
[2023-01-13 06:06] LABS: Hemoglobin 7.9 g/dL (12.0-16.0)
[2023-01-13 06:34] LABS: Anion Gap 11 mmol/L (10-20); BUN (Urea Nitrogen) 16 mg/dL (9.8-20.1); Calc. Creatinine Clearance 69 mL/min (70-130); Calcium 8.6 mg/dL (7.8-10.44); Carbon Dioxide 22 mmol/L (23-31); Chloride 107 mmol/L (98-107); Estimated GFR 81; Glucose 120 mg/dL (83-110); Phosphorus 2.5 mg/dL (2.3-4.7); Potassium 3.9 mmol/L (3.5-5.1); Sodium 136 mmol/L (136-145)
[2023-01-13] MEDS: Sertraline 25 MG TAB PO SCH (10:10)
[2023-01-13] MEDS: Furosemide 40 MG TAB PO SCH (10:11)
[2023-01-13] MEDS: Ferrous Sulfate 325 MG TAB PO SCH ×2 (10:11→20:41)
[2023-01-13] MEDS: Ascorbic Acid 500 mg Chewable Tablet PO SCH ×2 (10:13→20:38)
[2023-01-13] MEDS: Gabapentin 300 MG CAP PO SCH ×3 (10:13→20:42)
[2023-01-13] MEDS: Oxybutynin ER 5 MG TAB PO SCH (10:13)
[2023-01-13] MEDS: Topiramate 100 MG TAB PO SCH ×2 (10:13→20:42)
[2023-01-13] MEDS: Senokot S 8.6-50 MG TAB PO SCH ×2 (10:13→20:39)
[2023-01-13] MEDS: Apixaban 5 MG TAB PO SCH ×2 (10:13→20:40)
[2023-01-13] MEDS: Saccharomyces boulardii 250 MG CAP PO SCH (10:14)
[2023-01-13] MEDS: Polyethylene Glycol 3350 17 GM Packet PO SCH (10:14)
[2023-01-13] MEDS: Melatonin 3 MG TAB PO SCH (20:38)
[2023-01-13] MEDS: Rosuvastatin 20 MG TAB PO SCH (20:41)
[2023-01-14] MEDS: Acetaminophen 325 MG TAB PO SCH ×4 (03:43→21:06)
[2023-01-14] MEDS: Acetaminophen/Codeine 30-300mg Tablet PO SCH ×2 (03:44→09:54)
[2023-01-14 04:01] LABS: Bacteria/HPF 4+ HPF (None Seen); Bilirubin Negative (Negative); Blood, Urine Negative (Negative); CAUTI Indications for Culture Dysuria,urgency,freq; Clarity Turbid (Clear); Glucose, Urine (Dipstick) Normal (Negative); Ketone, Urine Negative (Negative); Leukocyte 500 Leu/uL (Negative); Nitrite 2+ (Negative); Protein, Urine (Dipstick) 10 mg/dL (Neg-Trace); RBC/HPF 0-3 HPF (0-3); Specific Gravity, Urine 1.019 (1.002-1.036); Squamous Epithelial None Seen HPF (0-3); Urobilinogen 3 mg/dL (Less than 2); WBC/HPF 21-50 HPF (0-3)
[2023-01-14 04:04] LABS: Urine Culture Reflex Yes Yes
[2023-01-14 06:09] LABS: Hemoglobin 7.5 g/dL (12.0-16.0)
[2023-01-14] MEDS: cefTRIAXone\\ROCEPHIN 2 GM in Sodium Chloride 0.9% 100 ML IVPB SCH (08:36)
[2023-01-14] MEDS: Senokot S 8.6-50 MG TAB PO SCH ×2 (08:36→21:05)
[2023-01-14] MEDS: Oxybutynin ER 5 MG TAB PO SCH (08:37)
[2023-01-14] MEDS: Ascorbic Acid 500 mg Chewable Tablet PO SCH ×2 (08:37→21:05)
[2023-01-14] MEDS: Topiramate 100 MG TAB PO SCH ×2 (08:37→21:04)
[2023-01-14] MEDS: Apixaban 5 MG TAB PO SCH ×2 (08:37→21:05)
[2023-01-14] MEDS: Ferrous Sulfate 325 MG TAB PO SCH ×2 (08:37→21:05)
[2023-01-14] MEDS: Gabapentin 300 MG CAP PO SCH ×3 (08:38→21:06)
[2023-01-14] MEDS: Saccharomyces boulardii 250 MG CAP PO SCH (08:39)
[2023-01-14] MEDS: Polyethylene Glycol 3350 17 GM Packet PO SCH (08:41)
[2023-01-14] MEDS: Furosemide 40 MG TAB PO SCH (08:41)
[2023-01-14] MEDS: Sertraline 25 MG TAB PO SCH (09:59)
[2023-01-14] MEDS ORDERED: Ketorolac Tromethamine 30 MG/ML VIAL IVP SCH (12:45)
[2023-01-14] MEDS ORDERED: traMADol HCl 50 MG TAB PO SCH (18:00)
[2023-01-14] MEDS: HYDROcodone/Acetaminophen 7.5/325 mg Tablet PO SCH ×2 (18:22→21:05)
[2023-01-14] MEDS: Ketorolac Tromethamine 30 MG/ML VIAL IVP SCH (18:22)
[2023-01-14] MEDS: Rosuvastatin 20 MG TAB PO SCH (21:04)
[2023-01-14] MEDS: Melatonin 3 MG TAB PO SCH (21:04)
[2023-01-14] MEDS: Tamsulosin HCl 0.4 MG CAP PO SCH (21:04)
[2023-01-15] MEDS: Ketorolac Tromethamine 30 MG/ML VIAL IVP SCH ×4 (00:37→18:42)
[2023-01-15] MEDS: Acetaminophen 325 MG TAB PO SCH ×4 (04:55→21:10)
[2023-01-15] MEDS: HYDROcodone/Acetaminophen 7.5/325 mg Tablet PO SCH ×4 (04:55→21:09)
[2023-01-15 06:01] LABS: #Eosinphils 0.2 thou/uL (0.0-0.7); #Monocytes 0.6 thou/uL (0.11-0.59); #Neutrophils 4.6 thou/uL (1.40-6.50); %Basophils 0.6 % (0.0-1.0); %Eosinophils 3.6 % (0.0-10.0); %Lymphocytes 16.3 % (21.0-51.0); %Monocytes 9.1 % (0.0-10.0); %Neutrophils 69.5 % (42.0-75.0); Hemoglobin 7.6 g/dL (12.0-16.0); Mean Corpuscular Hemoglobin 20.8 pg (27.0-31.0); Mean Platelet Volume 11.2 fL (7.4-10.4); Platelet Count 199 10x3/uL (130-400); RBC Distribution Width 19.1 % (11.5-14.5); Red Blood Cell (RBC) Count 3.66 mill/uL (4.20-5.40); White Blood Cell (WBC) Count 6.7 10x3/uL (4.8-10.8)
[2023-01-15 06:19] LABS: Anion Gap 11 mmol/L (10-20); BUN (Urea Nitrogen) 23 mg/dL (9.8-20.1); Calc. Creatinine Clearance 58 mL/min (70-130); Calcium 8.6 mg/dL (7.8-10.44); Carbon Dioxide 25 mmol/L (23-31); Chloride 105 mmol/L (98-107); Estimated GFR 66; Glucose 106 mg/dL (83-110); Magnesium 2.1 mg/dL (1.6-2.6); Potassium 4.1 mmol/L (3.5-5.1); Sodium 137 mmol/L (136-145)
[2023-01-15] MEDS: cefTRIAXone\\ROCEPHIN 2 GM in Sodium Chloride 0.9% 100 ML IVPB SCH (06:35)
[2023-01-15 08:26] LABS: CellaVision Operator ID LAB.CMB; Elliptocytes SLIGHT = 2-5 cells HPF (0-1); Hypochromia SLIGHT = 6-15 cells HPF (0-5); Ovalocytes SLIGHT = 2-5 cells HPF (0-1); Platelet Morphology Comment Platelets Normal; Polychromasia MODERATE = 3-4 cells HPF (0-2)
[2023-01-15] MEDS ORDERED: traMADol HCl 50 MG TAB PO PRN (09:11)
[2023-01-15] MEDS: Saccharomyces boulardii 250 MG CAP PO SCH (09:26)
[2023-01-15] MEDS: Topiramate 100 MG TAB PO SCH ×2 (09:26→21:08)
[2023-01-15] MEDS: Ferrous Sulfate 325 MG TAB PO SCH ×2 (09:26→21:10)
[2023-01-15] MEDS: Furosemide 40 MG TAB PO SCH (09:27)
[2023-01-15] MEDS: Apixaban 5 MG TAB PO SCH ×2 (09:27→21:11)
[2023-01-15] MEDS: Senokot S 8.6-50 MG TAB PO SCH ×2 (09:27→21:08)
[2023-01-15] MEDS: Gabapentin 300 MG CAP PO SCH ×3 (09:27→21:08)
[2023-01-15] MEDS: Oxybutynin ER 5 MG TAB PO SCH (09:27)
[2023-01-15] MEDS: Ascorbic Acid 500 mg Chewable Tablet PO SCH ×2 (09:27→21:10)
[2023-01-15] MEDS: Sertraline 25 MG TAB PO SCH (09:27)
[2023-01-15] MEDS: Polyethylene Glycol 3350 17 GM Packet PO SCH (09:28)
[2023-01-15] MEDS: Melatonin 3 MG TAB PO SCH (21:09)
[2023-01-15] MEDS: Famotidine 20 MG TAB PO SCH (21:09)
[2023-01-15] MEDS: Tamsulosin HCl 0.4 MG CAP PO SCH (21:10)
[2023-01-15] MEDS: Rosuvastatin 20 MG TAB PO SCH (21:10)
[2023-01-16] MEDS: HYDROcodone/Acetaminophen 7.5/325 mg Tablet PO SCH ×2 (04:45→09:36)
[2023-01-16] MEDS: Acetaminophen 325 MG TAB PO SCH (04:46)
[2023-01-16 06:04] VITALS: TEMP 97.9
[2023-01-16] MEDS: cefTRIAXone\\ROCEPHIN 2 GM in Sodium Chloride 0.9% 100 ML IVPB SCH (06:25)
[2023-01-16] MEDS ORDERED: Potassium Chloride 10 MEQ TAB PO SCH (09:00)
[2023-01-16] MEDS: Ascorbic Acid 500 mg Chewable Tablet PO SCH (09:25)
[2023-01-16] MEDS: Oxybutynin ER 5 MG TAB PO SCH (09:25)
[2023-01-16] MEDS: Famotidine 20 MG TAB PO SCH (09:25)
[2023-01-16] MEDS: Ferrous Sulfate 325 MG TAB PO SCH (09:25)
[2023-01-16] MEDS: Saccharomyces boulardii 250 MG CAP PO SCH (09:26)
[2023-01-16] MEDS: Apixaban 5 MG TAB PO SCH (09:27)
[2023-01-16] MEDS: Gabapentin 300 MG CAP PO SCH (09:27)
[2023-01-16] MEDS: Furosemide 40 MG TAB PO SCH (09:29)
[2023-01-16] MEDS: Polyethylene Glycol 3350 17 GM Packet PO SCH (09:29)
[2023-01-16] MEDS: Topiramate 100 MG TAB PO SCH (09:29)
[2023-01-16] MEDS: Senokot S 8.6-50 MG TAB PO SCH (09:29)
[2023-01-16] MEDS: Sertraline 25 MG TAB PO SCH (09:37)
[2023-01-16 13:16] VITALS: BP 143/84
[2023-01-16] MEDS ORDERED: Non-Formulary Item 1 EACH (Latanoprost/Pf [Latanoprost 0.005% Eye Drop] 7.5 ML Drops) EA EYE SCH (21:00)
[2023-01-16] MEDS ORDERED: Latanoprost 0.005% Ophth Soln 2.5 ml Bottle EA EYE SCH (21:00)
== END 2023-01-16 14:23 | DRG 481 ==
LOC: ERS 17:56 → SURG A 22:02
PROVIDERS: ADMIT Surgery; ATTEND Surgery
PROC: 0HQDXZZ Repair Right Lower Arm Skin, External Approach (ICD-10-PCS; 2023-01-09)
PROC: 0QS604Z Reposition Right Upper Femur with Internal Fixation Device, Open Approach (ICD-10-PCS; principal; 2023-01-10)
DX: S72.001A Fracture of unspecified part of neck of right femur, initial encounter for closed fracture (principal); D62 Acute posthemorrhagic anemia; N39.0 Urinary tract infection, site not specified; I25.10 Atherosclerotic heart disease of native coronary artery without angina pectoris; I73.9 Peripheral vascular disease, unspecified; G25.81 Restless legs syndrome; S51.011A Laceration without foreign body of right elbow, initial encounter; W19.XXXA Unspecified fall, initial encounter; I10 Essential (primary) hypertension; E78.5 Hyperlipidemia, unspecified; Y92.129 Unspecified place in nursing home as the place of occurrence of the external cause; Z95.5 Presence of coronary angioplasty implant and graft; Z98.890 Other specified postprocedural states; Z90.710 Acquired absence of both cervix and uterus; Z87.891 Personal history of nicotine dependence; Z88.8 Allergy status to other drugs, medicaments and biological substances
CPT/HCPCS: 12001; 36415; 72192; 80048; 80053; 81001; 83735; 84100; 85014; 85018; 85025; 85610; 85730; 86850; 86900; 86901; 87077; 87086; 87186; 93005; 96374; 96376; C1713; J0696; J1100; J1885; J2001; J2272; J2405; J2704; J3010; J3475; J3480; J3490; J7050; J7120

== ENCOUNTER 2023-06-05 09:14 | Outpatient (CLI) | payer OTHER | END 2023-06-05 09:15 | disposition home or self-care (01) | LOC: ULT 09:14 | PROVIDERS: ATTEND Urology | DX: D17.71 Benign lipomatous neoplasm of kidney (principal); Q61.00 Congenital renal cyst, unspecified | CPT/HCPCS: 76770 ==

== ENCOUNTER 2023-06-26 12:34 | Outpatient (CLI) | payer OTHER | END 2023-06-26 12:35 | disposition home or self-care (01) | LOC: BICCT 12:34 | PROVIDERS: ATTEND Orthopaedic Surgery | DX: S72.06 Articular fracture of head of femur (principal) ==

== ENCOUNTER 2023-09-21 17:52 | Emergency (ER) | payer OTHER, MEDICARE ==
[~2023-09-21 17:52] MED LIST: Iopamidol-370 76% 500 ML MDV (1 ML CHARGE) ONE
[2023-09-21 18:52] LABS: #Basophils 0.1 thou/uL (0.0-0.2); #Monocytes 0.6 thou/uL (0.11-0.59); #Neutrophils 6.2 thou/uL (1.40-6.50); %Basophils 0.6 % (0.0-1.0); %Eosinophils 0.3 % (0.0-10.0); %Lymphocytes 9.3 % (21.0-51.0); %Monocytes 8.2 % (0.0-10.0); %Neutrophils 80.2 % (42.0-75.0); Hematocrit 40.3 % (36.0-47.0); Hemoglobin 12.6 g/dL (12.0-16.0); Mean Corpuscular HGB CONC 31.3 g/dL (32.0-36.0); Mean Corpuscular Hemoglobin 27.6 pg (27.0-31.0); Mean Corpuscular Volume 88.4 fl (78.0-98.0); Mean Platelet Volume 10.4 fL (7.4-10.4); Platelet Count 219 10x3/uL (130-400); RBC Distribution Width 15.8 % (11.5-14.5); Red Blood Cell (RBC) Count 4.56 mill/uL (4.20-5.40); White Blood Cell (WBC) Count 7.8 10x3/uL (4.8-10.8)
[2023-09-21 19:10] LABS: ALT (SGPT) 12 U/L (8-55); AST (SGOT) 16 U/L (5-34); Albumin 3.8 g/dL (3.4-4.8); Alkaline Phosphatase 99 U/L (40-110); Anion Gap 15 mmol/L (10-20); BUN (Urea Nitrogen) 19 mg/dL (9.8-20.1); Bilirubin, Total 0.8 mg/dL (0.2-1.2); Calc. Creatinine Clearance 0 mL/min (70-130); Calcium 9.1 mg/dL (7.8-10.44); Carbon Dioxide 18 mmol/L (23-31); Chloride 102 mmol/L (98-107); Estimated GFR 58; Globulin 3.1 g/dL (2.4-3.5); Glucose 116 mg/dL (83-110); Potassium 3.5 mmol/L (3.5-5.1); Protein, Total 6.9 g/dL (5.8-8.1); Sodium 131 mmol/L (136-145)
[2023-09-21] MEDS ORDERED: Acetaminophen 500 MG TAB ONE (19:30)
[2023-09-21 23:38] LABS: Bacteria/HPF None Seen HPF (None Seen); Bilirubin Negative (Negative); Blood, Urine Negative (Negative); CAUTI Indications for Culture Pelvic or flank pain; Clarity Clear (Clear); Glucose, Urine (Dipstick) Normal (Negative); Ketone, Urine Negative (Negative); Leukocyte Negative Leu/uL (Negative); Nitrite Negative (Negative); Protein, Urine (Dipstick) Negative (Neg-Trace); RBC/HPF None Seen HPF (0-3); Specific Gravity, Urine 1.023 (1.002-1.036); Squamous Epithelial None Seen HPF (0-3); Urobilinogen Normal mg/dL (Less than 2); WBC/HPF None Seen HPF (0-3)
[2023-09-21 23:40] LABS: Urine Culture Reflex No No
[2023-09-22] MEDS ORDERED: Meclizine HCl 25 MG TAB ONE (00:31)
== END 2023-09-22 01:56 | disposition home or self-care (01) ==
LOC: ERS 17:52
DX: R42 Dizziness and giddiness (principal); Z87.891 Personal history of nicotine dependence
CPT/HCPCS: 36415; 51701; 70450; 71045; 74177; 80053; 81001; 83605; 85025; 87086; 93005; 96360; 96361; Q9967

== ENCOUNTER 2023-09-27 13:30 | Inpatient (IN) | payer OTHER, MEDICAID ==
[2023-09-27 14:25] VITALS: BMI 26.1
[2023-10-01] MEDS ORDERED: Bupivacaine 0.25% HCL 30 ML VIAL ONE (09:27)
[2023-10-01] MEDS ORDERED: Midazolam HCl 2 mg/2 ml Vial ONE (09:27)
[2023-10-01] MEDS ORDERED: fentaNYL 50 mcg/mL 1 mL Vial ONE ×6 (09:27→16:08)
[2023-10-01] MEDS ORDERED: Lidocaine 1% PF 5 ML VIAL ONE (09:35)
[2023-10-01] MEDS ORDERED: Rocuronium Bromide 10 MG/ML (10ML VIAL) ONE (09:35)
[2023-10-01] MEDS ORDERED: PROPOFOL 20 ML ONE (09:35)
[2023-10-01] MEDS ORDERED: NEOSTIGMINE 3 MG/3 ML SYR 3 MG/3 ML SYRINGE ONE (09:46)
[2023-10-01] MEDS ORDERED: Glycopyrrolate 0.2 MG/ML 5 ML SYRINGE ONE (09:46)
[2023-10-01] MEDS ORDERED: Bupivacaine/Epinephrine 0.25% 30 ML VIAL ONE (09:50)
[2023-10-01] MEDS ORDERED: Albumin 5% 0 ML ONE (10:12)
[2023-10-01] MEDS ORDERED: Phenylephrine 40 MG/NS 250 ML 0 ML ONE (10:12)
[2023-10-01] MEDS ORDERED: cefOXitin 2 GM VIAL ONE (10:20)
[2023-10-01] MEDS ORDERED: Sodium Chloride 0.9% 100 ML ONE (10:20)
[2023-10-01] MEDS ORDERED: fentaNYL PF 100 MCG/2 ML SYRINGE ONE (10:29)
[2023-10-01] MEDS ORDERED: Dexamethasone 4 mg/ml Vial ONE (10:44)
[2023-10-01] MEDS ORDERED: Labetalol HCl 100 MG/20 ML VIAL ONE (10:56)
[2023-10-01] MEDS ORDERED: ePHEDrine Sulfate 50 MG/10 ML VIAL ONE (11:20)
[2023-10-01] MEDS ORDERED: Ondansetron HCl/PF 4 MG/2 ML Vial IVP PRN (12:00)
[2023-10-01] MEDS ORDERED: Promethazine HCl 25 MG/ML VIAL IM PRN (12:00)
[2023-10-01] MEDS ORDERED: Ondansetron PF 4 MG/2 ML Vial ONE (12:16)
[2023-10-01] MEDS ORDERED: SUGAMMADEX SODIUM 200 MG/2 ML VIAL ONE (12:19)
[2023-10-01] MEDS ORDERED: Ipratropium/Albuterol 3 ML NEB NEB PRN (13:21)
[2023-10-01] MEDS: Sodium Chloride 0.9% 1,000 ML IV SCH (13:50)
[2023-10-01] MEDS ORDERED: Morphine 4 MG/ML VIAL ONE (16:37)
[2023-10-01] MEDS: Acetaminophen 325 MG TAB PO PRN (18:09)
[2023-10-01] MEDS: HYDROcodone/Acetaminophen 7.5/325 mg Tablet PO PRN (18:11)
[2023-10-01] MEDS: Morphine 4 MG/ML VIAL SLOW IVP PRN (20:33)
[2023-10-01] MEDS: Topiramate 100 MG TAB PO SCH (20:34)
[2023-10-01] MEDS: Famotidine 20 MG TAB PO SCH (20:34)
[2023-10-01] MEDS: Latanoprost 0.005% Ophth Soln 2.5 ml Bottle EA EYE SCH (20:34)
[2023-10-01] MEDS: cefOXitin Sodium 1 GM in Sodium Chloride 0.9% 100 ML IVPB SCH (20:34)
[2023-10-01] MEDS: Famotidine/PF 20 mg/2ml Vial SLOW IVP SCH (20:35)
[2023-10-02 05:37] LABS: #Monocytes 0.8 thou/uL (0.11-0.59); #Neutrophils 8.5 thou/uL (1.40-6.50); %Basophils 0.2 % (0.0-1.0); %Eosinophils 0.1 % (0.0-10.0); %Lymphocytes 9.4 % (21.0-51.0); %Monocytes 7.6 % (0.0-10.0); %Neutrophils 82.3 % (42.0-75.0); Hematocrit 35.5 % (36.0-47.0); Hemoglobin 10.7 g/dL (12.0-16.0); Mean Corpuscular HGB CONC 30.1 g/dL (32.0-36.0); Mean Corpuscular Hemoglobin 27.2 pg (27.0-31.0); Mean Corpuscular Volume 90.1 fl (78.0-98.0); Mean Platelet Volume 10.8 fL (7.4-10.4); Platelet Count 201 10x3/uL (130-400); RBC Distribution Width 15.7 % (11.5-14.5); Red Blood Cell (RBC) Count 3.94 mill/uL (4.20-5.40); White Blood Cell (WBC) Count 10.3 10x3/uL (4.8-10.8)
[2023-10-02 05:59] LABS: Anion Gap 10 mmol/L (10-20); BUN (Urea Nitrogen) 7 mg/dL (9.8-20.1); Calc. Creatinine Clearance 52 mL/min (70-130); Calcium 8.3 mg/dL (7.8-10.44); Carbon Dioxide 20 mmol/L (23-31); Chloride 111 mmol/L (98-107); Estimated GFR 64; Glucose 131 mg/dL (83-110); Sodium 137 mmol/L (136-145)
[2023-10-02] MEDS: traMADol HCl 50 MG TAB PO PRN (09:46)
[2023-10-02] MEDS: Mirabegron ER 25 MG ER.TAB PO SCH (09:46)
[2023-10-02] MEDS: Furosemide 40 MG TAB PO SCH (09:46)
[2023-10-02] MEDS: Enoxaparin 40 MG (0.4 mL) SYRINGE SC SCH (09:47)
[2023-10-02] MEDS: Sodium Chloride 0.9% 1,000 ML IV SCH (20:19)
[2023-10-03] MEDS: Ondansetron PF 4 MG/2 ML Vial IVP PRN (00:12)
[2023-10-03] MEDS: Promethazine HCl 25 MG/ML VIAL IM PRN (04:39)
[2023-10-04] MEDS: D5 1/2 NS w/20 mEq KCL 1,000 ML IV SCH (08:31)
[2023-10-04] MEDS: hydrALAZINE 20 MG/ML VIAL SLOW IVP PRN (08:32)
[2023-10-05 05:21] LABS: Hemoglobin 10.5 g/dL (12.0-16.0); Manual Diff?? YES; Mean Corpuscular HGB CONC 31.8 g/dL (32.0-36.0); Mean Corpuscular Hemoglobin 27.2 pg (27.0-31.0); Mean Corpuscular Volume 85.5 fl (78.0-98.0); Mean Platelet Volume 10.9 fL (7.4-10.4); Platelet Count 248 10x3/uL (130-400); Red Blood Cell (RBC) Count 3.86 mill/uL (4.20-5.40); White Blood Cell (WBC) Count 3.2 10x3/uL (4.8-10.8)
[2023-10-05 05:22] LABS: Delete Auto Diff?? YES
[2023-10-05 05:44] LABS: Anion Gap 10 mmol/L (10-20); BUN (Urea Nitrogen) 16 mg/dL (9.8-20.1); Calc. Creatinine Clearance 49 mL/min (70-130); Carbon Dioxide 22 mmol/L (23-31); Chloride 109 mmol/L (98-107); Estimated GFR 59; Glucose 130 mg/dL (83-110); Potassium 3.5 mmol/L (3.5-5.1); Sodium 137 mmol/L (136-145)
[2023-10-05 05:56] LABS: Band 36 % (5-11); CellaVision Operator ID LAB.CLH1; Eosinophils 2 % (0-10); Hypochromia SLIGHT = 6-15 cells HPF (0-5); Large Platelets 8.7 % (0-5); Lymphocytes 17 % (21-51); Monocytes 19 % (0-10); Neutrophil 26 % (42-75); Platelet Adequacy Comment Platelets Normal; Polychromasia MODERATE = 3-4 cells HPF (0-2); Total Cell Count 103
[2023-10-06 04:57] LABS: #Eosinphils 0.1 thou/uL (0.0-0.7); #Monocytes 0.7 thou/uL (0.11-0.59); #Neutrophils 2.6 thou/uL (1.40-6.50); %Basophils 0.7 % (0.0-1.0); %Eosinophils 2.2 % (0.0-10.0); %Lymphocytes 22.7 % (21.0-51.0); %Monocytes 14.5 % (0.0-10.0); %Neutrophils 56.2 % (42.0-75.0); Hematocrit 33.3 % (36.0-47.0); Hemoglobin 10.4 g/dL (12.0-16.0); Mean Corpuscular HGB CONC 31.2 g/dL (32.0-36.0); Mean Corpuscular Hemoglobin 27.4 pg (27.0-31.0); Mean Corpuscular Volume 87.9 fl (78.0-98.0); Mean Platelet Volume 10.3 fL (7.4-10.4); Platelet Count 223 10x3/uL (130-400); RBC Distribution Width 15.9 % (11.5-14.5); Red Blood Cell (RBC) Count 3.79 mill/uL (4.20-5.40); White Blood Cell (WBC) Count 4.5 10x3/uL (4.8-10.8)
[2023-10-06 05:20] LABS: Anion Gap 10 mmol/L (10-20); BUN (Urea Nitrogen) 12 mg/dL (9.8-20.1); Calc. Creatinine Clearance 60 mL/min (70-130); Calcium 8.6 mg/dL (7.8-10.44); Carbon Dioxide 19 mmol/L (23-31); Chloride 110 mmol/L (98-107); Estimated GFR 75; Glucose 103 mg/dL (83-110); Potassium 3.9 mmol/L (3.5-5.1); Sodium 135 mmol/L (136-145)
[2023-10-07] MEDS: D5 1/2 NS w/20 mEq KCL 1,000 ML IV SCH (13:46)
[2023-10-09] MEDS: D5 1/2 NS w/20 mEq KCL 1,000 ML IV SCH (01:52)
[2023-10-09] MEDS: Benzocaine/Menthol 1 LOZ LOZ PO PRN (01:56)
[2023-10-09 04:50] LABS: Hematocrit 37.4 % (36.0-47.0); Hemoglobin 11.4 g/dL (12.0-16.0); Manual Diff?? YES; Mean Corpuscular HGB CONC 30.5 g/dL (32.0-36.0); Mean Corpuscular Hemoglobin 26.3 pg (27.0-31.0); Mean Corpuscular Volume 86.4 fl (78.0-98.0); Mean Platelet Volume 11.1 fL (7.4-10.4); Platelet Count 164 10x3/uL (130-400); RBC Distribution Width 16.1 % (11.5-14.5); Red Blood Cell (RBC) Count 4.33 mill/uL (4.20-5.40); White Blood Cell (WBC) Count 10.4 10x3/uL (4.8-10.8)
[2023-10-09 04:55] LABS: Delete Auto Diff?? YES
[2023-10-09 05:21] LABS: Anion Gap 11 mmol/L (10-20); BUN (Urea Nitrogen) 17 mg/dL (9.8-20.1); Calc. Creatinine Clearance 52 mL/min (70-130); Calcium 9.2 mg/dL (7.8-10.44); Carbon Dioxide 23 mmol/L (23-31); Chloride 106 mmol/L (98-107); Estimated GFR 63; Glucose 138 mg/dL (83-110); Potassium 3.9 mmol/L (3.5-5.1); Sodium 136 mmol/L (136-145)
[2023-10-09 05:27] LABS: Band 31 % (5-11); CellaVision Operator ID LAB.CLH1; Elliptocytes SLIGHT = 2-5 cells HPF (0-1); Hypochromia SLIGHT = 6-15 cells HPF (0-5); Lymphocytes 8 % (21-51); Monocytes 9 % (0-10); Neutrophil 52 % (42-75); Platelet Adequacy Comment Platelets Normal; Poikilocytosis SLIGHT = 6-15 cells HPF (0-5); Polychromasia SLIGHT = 2-3 cells HPF (0-2); Total Cell Count 100
[2023-10-09] MEDS ORDERED: Iopamidol-370 76% 500 ML MDV (1 ML CHARGE) ONE (11:02)
[2023-10-10] MEDS ORDERED: LYTES IN TPN IVPB PRN (10:18)
[2023-10-10 12:21] LABS: ALT (SGPT) 8 U/L (8-55); AST (SGOT) 12 U/L (5-34); Albumin 2.8 g/dL (3.4-4.8); Alkaline Phosphatase 91 U/L (40-110); Anion Gap 10 mmol/L (10-20); BUN (Urea Nitrogen) 11 mg/dL (9.8-20.1); Bilirubin, Total 0.8 mg/dL (0.2-1.2); Calc. Creatinine Clearance 58 mL/min (70-130); Calcium 8.9 mg/dL (7.8-10.44); Carbon Dioxide 23 mmol/L (23-31); Chloride 105 mmol/L (98-107); Estimated GFR 72; Globulin 2.7 g/dL (2.4-3.5); Glucose 118 mg/dL (83-110); Magnesium 1.5 mg/dL (1.6-2.6); Phosphorus 2.2 mg/dL (2.3-4.7); Potassium 3.9 mmol/L (3.5-5.1); Protein, Total 5.5 g/dL (5.8-8.1); Sodium 134 mmol/L (136-145)
[2023-10-10] MEDS ORDERED: Sodium Bicarbonate 2.5 MEQ/5 ML SDV ONE (13:35)
[2023-10-10] MEDS ORDERED: Lidocaine 1% PF 5 ML VIAL ONE (13:35)
[2023-10-10] MEDS ORDERED: Fat Emulsion 250 ML, Multivitamins, Adult 10 ML, TRACE ELEMENT CONCENTRATE 1 ML in D15W... IV SCH (14:00)
[2023-10-10] MEDS: Multivitamins, Adult 10 ML, TRACE ELEMENT CONCENTRATE 1 ML in D15W-AA 5% with Lytes 2,0... IV SCH (14:50)
[2023-10-11 04:56] LABS: #Eosinphils 0.1 thou/uL (0.0-0.7); #Monocytes 0.8 thou/uL (0.11-0.59); #Neutrophils 10.4 thou/uL (1.40-6.50); %Basophils 0.3 % (0.0-1.0); %Eosinophils 0.5 % (0.0-10.0); %Lymphocytes 7.1 % (21.0-51.0); %Monocytes 6.4 % (0.0-10.0); %Neutrophils 83.3 % (42.0-75.0); Hematocrit 33.2 % (36.0-47.0); Hemoglobin 10.5 g/dL (12.0-16.0); Mean Corpuscular HGB CONC 31.6 g/dL (32.0-36.0); Mean Corpuscular Hemoglobin 26.7 pg (27.0-31.0); Mean Corpuscular Volume 84.5 fl (78.0-98.0); Mean Platelet Volume 11.1 fL (7.4-10.4); Platelet Count 186 10x3/uL (130-400); RBC Distribution Width 15.9 % (11.5-14.5); Red Blood Cell (RBC) Count 3.93 mill/uL (4.20-5.40); White Blood Cell (WBC) Count 12.5 10x3/uL (4.8-10.8)
[2023-10-11 06:07] LABS: ALT (SGPT) 7 U/L (8-55); AST (SGOT) 11 U/L (5-34); Albumin 2.8 g/dL (3.4-4.8); Alkaline Phosphatase 90 U/L (40-110); Anion Gap 11 mmol/L (10-20); BUN (Urea Nitrogen) 15 mg/dL (9.8-20.1); Bilirubin, Total 0.7 mg/dL (0.2-1.2); Calc. Creatinine Clearance 65 mL/min (70-130); Calcium 8.5 mg/dL (7.8-10.44); Carbon Dioxide 23 mmol/L (23-31); Chloride 103 mmol/L (98-107); Estimated GFR 82; Globulin 2.7 g/dL (2.4-3.5); Glucose 111 mg/dL (83-110); Magnesium 1.8 mg/dL (1.6-2.6); Phosphorus 2.8 mg/dL (2.3-4.7); Potassium 3.8 mmol/L (3.5-5.1); Protein, Total 5.5 g/dL (5.8-8.1); Sodium 133 mmol/L (136-145)
[2023-10-11] MEDS: Multivitamins, Adult 10 ML, TRACE ELEMENT CONCENTRATE 1 ML, Fat Emulsion 250 ML in D15W... IV SCH (13:28)
[2023-10-11 17:14] LABS: Troponin I Less than 0.010 ng/mL (< 0.028)
[2023-10-12 19:55] LABS: ALT (SGPT) 11 U/L (8-55); AST (SGOT) 15 U/L (5-34); Albumin 2.9 g/dL (3.4-4.8); Alkaline Phosphatase 99 U/L (40-110); Anion Gap 13 mmol/L (10-20); BUN (Urea Nitrogen) 24 mg/dL (9.8-20.1); Bilirubin, Total 0.5 mg/dL (0.2-1.2); Calc. Creatinine Clearance 73 mL/min (70-130); Calcium 8.7 mg/dL (7.8-10.44); Carbon Dioxide 19 mmol/L (23-31); Chloride 104 mmol/L (98-107); Estimated GFR 88; Globulin 2.9 g/dL (2.4-3.5); Glucose 143 mg/dL (83-110); Magnesium 2.1 mg/dL (1.6-2.6); Phosphorus 3.2 mg/dL (2.3-4.7); Potassium 3.6 mmol/L (3.5-5.1); Protein, Total 5.8 g/dL (5.8-8.1); Sodium 132 mmol/L (136-145)
[2023-10-13 06:21] LABS: ALT (SGPT) 15 U/L (8-55); AST (SGOT) 17 U/L (5-34); Alkaline Phosphatase 106 U/L (40-110); Anion Gap 11 mmol/L (10-20); BUN (Urea Nitrogen) 27 mg/dL (9.8-20.1); Bilirubin, Total 0.6 mg/dL (0.2-1.2); Calc. Creatinine Clearance 68 mL/min (70-130); Carbon Dioxide 23 mmol/L (23-31); Chloride 104 mmol/L (98-107); Estimated GFR 87; Globulin 3.1 g/dL (2.4-3.5); Glucose 102 mg/dL (83-110); Magnesium 2.2 mg/dL (1.6-2.6); Phosphorus 2.9 mg/dL (2.3-4.7); Protein, Total 6.1 g/dL (5.8-8.1); Sodium 134 mmol/L (136-145)
[2023-10-14 06:54] LABS: Hemoglobin 11.2 g/dL (12.0-16.0); Manual Diff?? YES; Mean Corpuscular HGB CONC 31.1 g/dL (32.0-36.0); Mean Corpuscular Hemoglobin 26.4 pg (27.0-31.0); Mean Corpuscular Volume 84.9 fl (78.0-98.0); Mean Platelet Volume 11.3 fL (7.4-10.4); Platelet Count 312 10x3/uL (130-400); Red Blood Cell (RBC) Count 4.24 mill/uL (4.20-5.40); White Blood Cell (WBC) Count 14.2 10x3/uL (4.8-10.8)
[2023-10-14 06:55] LABS: Delete Auto Diff?? YES
[2023-10-14 07:26] LABS: ALT (SGPT) 29 U/L (8-55); AST (SGOT) 28 U/L (5-34); Alkaline Phosphatase 109 U/L (40-110); Anion Gap 12 mmol/L (10-20); BUN (Urea Nitrogen) 25 mg/dL (9.8-20.1); Bilirubin, Total 0.5 mg/dL (0.2-1.2); Calc. Creatinine Clearance 67 mL/min (70-130); Carbon Dioxide 20 mmol/L (23-31); Chloride 106 mmol/L (98-107); Estimated GFR 86; Glucose 102 mg/dL (83-110); Magnesium 2.3 mg/dL (1.6-2.6); Phosphorus 3.2 mg/dL (2.3-4.7); Sodium 134 mmol/L (136-145)
[2023-10-14 07:51] LABS: Burr Cells SLIGHT = 2-5 cells HPF (0-1); CellaVision Operator ID LAB.KW3; Eosinophils 1 % (0-10); Lymphocytes 9 % (21-51); Monocytes 6 % (0-10); Neutrophil 84 % (42-75); Platelet Adequacy Comment Platelets Normal; Polychromasia SLIGHT = 2-3 cells HPF (0-2); Total Cell Count 100
[2023-10-14] MEDS: traMADol HCl 50 MG TAB PO PRN (20:38)
[2023-10-15] MEDS: traMADol HCl 50 MG TAB PO PRN (18:14)
[2023-10-16 07:51] VITALS: BP 135/70; TEMP 97.5
== END 2023-10-16 10:30 | disposition home or self-care (01) | DRG 330 ==
LOC: SURG A 10-01 08:05 → EDSTATUS 10-01 13:30 → SURG A 10-01 17:07
PROVIDERS: ADMIT Surgery; ATTEND Surgery
PROC: 0DTF0ZZ Resection of Right Large Intestine, Open Approach (ICD-10-PCS; 2023-10-01)
PROC: 0DJD4ZZ Inspection of Lower Intestinal Tract, Percutaneous Endoscopic Approach (ICD-10-PCS; 2023-10-01)
PROC: 3E033XZ Introduction of Vasopressor into Peripheral Vein, Percutaneous Approach (ICD-10-PCS; 2023-10-01)
PROC: 30233J1 Transfusion of Nonautologous Serum Albumin into Peripheral Vein, Percutaneous Approach (ICD-10-PCS; 2023-10-01)
PROC: 02HV33Z Insertion of Infusion Device into Superior Vena Cava, Percutaneous Approach (ICD-10-PCS; principal; 2023-10-10)
PROC: B5181ZA Fluoroscopy of Superior Vena Cava using Low Osmolar Contrast, Guidance (ICD-10-PCS; 2023-10-10)
PROC: B548ZZA Ultrasonography of Superior Vena Cava, Guidance (ICD-10-PCS; 2023-10-10)
PROC: 0D9670Z Drainage of Stomach with Drainage Device, Via Natural or Artificial Opening (ICD-10-PCS; 2023-10-11)
PROC: 3E0G76Z Introduction of Nutritional Substance into Upper GI, Via Natural or Artificial Opening (ICD-10-PCS; 2023-10-11)
DX: C18.2 Malignant neoplasm of ascending colon (principal); K56.7 Ileus, unspecified; K91.89 Other postprocedural complications and disorders of digestive system; R53.81 Other malaise; K66.0 Peritoneal adhesions (postprocedural) (postinfection)
CPT/HCPCS: 36415; 36416; 36569; 74018; 74019; 74177; 80048; 80053; 83735; 84100; 84484; 85025; 88309; 88341; 88342; 93005; 93010; A4314; A4649; J0360; J0665; J0694; J1100; J1650; J2250; J2270; J2405; J2550; J2704; J3010; J3480; J3490; J7050; P9045; Q9967; S0028

== ENCOUNTER 2023-09-27 13:38 | Outpatient (CLI) | payer OTHER, MEDICAID ==
[2023-09-27 16:06] LABS: #Eosinphils 0.1 10x3/uL (0.0-0.5); #Monocytes 0.5 10x3/uL (0.0-1.1); #Neutrophils 6.9 10x3/uL (1.5-8.4); %Basophils 0.3 % (0.0-2.0); %Eosinophils 0.6 % (0.0-6.0); %Lymphocytes 15.7 % (18.0-47.0); %Monocytes 5.5 % (0.0-10.0); %Neutrophils 76.5 % (40.0-75.0); Hematocrit 39.2 % (34.9-44.5); Hemoglobin 12.6 g/dL (12.0-15.5); Mean Corpuscular HGB CONC 32.1 g/dL (32.0-36.0); Mean Corpuscular Hemoglobin 27.5 pg (27.0-33.0); Mean Corpuscular Volume 85.6 fl (81.6-98.3); Mean Platelet Volume 11.7 fl (7.4-10.4); Platelet Count 268 10x3/uL (150-450); RBC Distribution Width 15.3 % (11.5-14.5); Red Blood Cell (RBC) Count 4.58 10x6/uL (3.90-5.03)
[2023-09-27 16:18] LABS: Anion Gap 14 mmol/L (10-20); BUN (Urea Nitrogen) 14 mg/dL (9.8-20.1); Calc. Creatinine Clearance 0 mL/min (70-130); Calcium 9.5 mg/dL (7.8-10.44); Carbon Dioxide 23 mmol/L (23-31); Chloride 106 mmol/L (98-107); Estimated GFR 61; Glucose 110 mg/dL (83-110); Sodium 139 mmol/L (136-145)
== END 2023-09-27 13:39 | disposition home or self-care (01) ==
LOC: LABBT 13:38
PROVIDERS: ATTEND Surgery
DX: Z01.812 Encounter for preprocedural laboratory examination (principal); C18.2 Malignant neoplasm of ascending colon
CPT/HCPCS: 80048; 83036; 85025

== ENCOUNTER 2023-10-28 15:51 | Inpatient (IN) | payer OTHER ==
[2023-10-28 16:48] LABS: #Eosinphils 0.1 thou/uL (0.0-0.7); #Monocytes 0.6 thou/uL (0.11-0.59); #Neutrophils 7.9 thou/uL (1.40-6.50); %Basophils 0.4 % (0.0-1.0); %Eosinophils 0.6 % (0.0-10.0); %Lymphocytes 12.2 % (21.0-51.0); %Monocytes 6.1 % (0.0-10.0); %Neutrophils 79.7 % (42.0-75.0); Hematocrit 40.3 % (36.0-47.0); Hemoglobin 12.8 g/dL (12.0-16.0); Mean Corpuscular HGB CONC 31.8 g/dL (32.0-36.0); Mean Corpuscular Hemoglobin 26.8 pg (27.0-31.0); Mean Corpuscular Volume 84.5 fl (78.0-98.0); Mean Platelet Volume 10.8 fL (7.4-10.4); Platelet Count 263 10x3/uL (130-400); RBC Distribution Width 15.9 % (11.5-14.5); Red Blood Cell (RBC) Count 4.77 mill/uL (4.20-5.40); White Blood Cell (WBC) Count 9.9 10x3/uL (4.8-10.8)
[2023-10-28 17:23] LABS: ALT (SGPT) 14 U/L (8-55); AST (SGOT) 30 U/L (5-34); Albumin 3.6 g/dL (3.4-4.8); Alkaline Phosphatase 101 U/L (40-110); Anion Gap 15 mmol/L (10-20); BUN (Urea Nitrogen) 14 mg/dL (9.8-20.1); Bilirubin, Total 0.3 mg/dL (0.2-1.2); Calc. Creatinine Clearance 0 mL/min (70-130); Calcium 9.3 mg/dL (7.8-10.44); Carbon Dioxide 22 mmol/L (23-31); Chloride 101 mmol/L (98-107); Estimated GFR 49; Globulin 3.2 g/dL (2.4-3.5); Glucose 104 mg/dL (83-110); Potassium 3.8 mmol/L (3.5-5.1); Protein, Total 6.8 g/dL (5.8-8.1); Sodium 134 mmol/L (136-145)
[2023-10-28] MEDS ORDERED: Dextrose 50% Abboject 50 ML SYRINGE SLOW IVP PRN (18:28)
[2023-10-28] MEDS ORDERED: Glucagon 1 MG/ML KIT IM PRN (18:28)
[2023-10-28] MEDS ORDERED: Acetaminophen 325 MG TAB PO PRN (18:28)
[2023-10-28] MEDS ORDERED: traMADol HCl 50 MG TAB PO PRN (18:28)
[2023-10-28] MEDS ORDERED: hydrALAZINE 20 MG/ML VIAL SLOW IVP PRN (18:28)
[2023-10-28] MEDS ORDERED: Promethazine HCl 25 MG/ML VIAL IM PRN (18:28)
[2023-10-28] MEDS ORDERED: Ipratropium/Albuterol 3 ML NEB NEB PRN (18:28)
[2023-10-28] MEDS ORDERED: Ondansetron PF 4 MG/2 ML Vial IVP PRN (18:28)
[2023-10-28] MEDS ORDERED: Dextrose 5% in Water 1,000 ML IV PRN (18:28)
[2023-10-28] MEDS: Topiramate 100 MG TAB PO SCH (21:48)
[2023-10-28] MEDS: Melatonin 3 MG TAB PO SCH (21:48)
[2023-10-28] MEDS: Morphine 2 MG/ML VIAL SLOW IVP PRN (21:48)
[2023-10-28] MEDS: Latanoprost 0.005% Ophth Soln 2.5 ml Bottle EA EYE SCH (21:48)
[2023-10-28] MEDS: Apixaban 5 MG TAB PO SCH (21:48)
[2023-10-28 22:30] LABS: Lactic Acid 1.7 mmol/L (0.5-2.2)
[2023-10-28 22:31] VITALS: BMI 18.2
[2023-10-28] MEDS: D5 1/2 NS w/20 mEq KCL 1,000 ML IV SCH (22:43)
[2023-10-29] MEDS: Famotidine 20 MG TAB PO SCH ×2 (06:37→09:15)
[2023-10-29] MEDS: Famotidine/PF 20 mg/2ml Vial SLOW IVP SCH (09:15)
[2023-10-29] MEDS: Mirabegron ER 25 MG ER.TAB PO SCH (09:15)
[2023-10-29] MEDS: Multivitamin W/ Minerals 1 TAB PO SCH (09:15)
[2023-10-29] MEDS ORDERED: traMADol HCl 50 MG TAB PO PRN (09:57)
[2023-10-29 16:53] LABS: Bacteria/HPF 4+ HPF (None Seen); Bilirubin Negative (Negative); Blood, Urine Negative (Negative); CAUTI Indications for Culture Dysuria,urgency,freq; Clarity Clear (Clear); Glucose, Urine (Dipstick) Normal (Negative); Ketone, Urine Negative (Negative); Leukocyte 75 Leu/uL (Negative); Nitrite Negative (Negative); Protein, Urine (Dipstick) Negative (Neg-Trace); RBC/HPF 0-3 HPF (0-3); Specific Gravity, Urine 1.008 (1.002-1.036); Squamous Epithelial 0-3 HPF (0-3); Urobilinogen Normal mg/dL (Less than 2); WBC/HPF 0-3 HPF (0-3); pH, Urine 6.5 (5.0-9.0)
[2023-10-29 16:54] LABS: Urine Culture Reflex No No
[2023-10-29] MEDS: Atorvastatin Calcium 40 MG TAB PO SCH (20:13)
[2023-10-29] MEDS: Apixaban 2.5 MG TAB PO SCH (20:13)
[2023-10-31] MEDS: Polyethylene Glycol 3350 17 GM Packet PO SCH (14:13)
[2023-11-01 08:35] VITALS: BP 124/74; TEMP 97.6
[2023-11-01] MEDS: Polyethylene Glycol 3350 17 GM Packet PO SCH (08:56)
== END 2023-11-01 15:05 | disposition home or self-care (01) | DRG 641 ==
LOC: ERS 15:51 → ERHOLD 16:27 → MSONC 18:06 → OBSVTOIN 18:28
PROVIDERS: ADMIT Surgery; ATTEND Surgery
DX: R62.7 Adult failure to thrive (principal); Z68.1 Body mass index [BMI] 19.9 or less, adult; I25.10 Atherosclerotic heart disease of native coronary artery without angina pectoris; I73.9 Peripheral vascular disease, unspecified; E78.5 Hyperlipidemia, unspecified; G25.81 Restless legs syndrome; I10 Essential (primary) hypertension; Z79.899 Other long term (current) drug therapy; Z85.038 Personal history of other malignant neoplasm of large intestine
CPT/HCPCS: 36415; 80053; 81001; 83605; 85025; 99284; J2272; J3480

== ENCOUNTER 2024-04-22 10:23 | Outpatient (CLI) | payer OTHER, MEDICAID | END 2024-04-22 10:24 | disposition home or self-care (01) | LOC: BICMAMMO 10:23 | PROVIDERS: ATTEND Family Medicine | DX: Z12.31 Encounter for screening mammogram for malignant neoplasm of breast (principal); Z91.89 Other specified personal risk factors, not elsewhere classified | CPT/HCPCS: 77063; 77067 ==

== ENCOUNTER 2024-10-14 08:35 | Outpatient (CLI) | payer OTHER | END 2024-10-14 08:36 | disposition home or self-care (01) | LOC: BICULT 08:35 | PROVIDERS: ATTEND Urology | DX: D17.71 Benign lipomatous neoplasm of kidney (principal); N28.1 Cyst of kidney, acquired; N28.89 Other specified disorders of kidney and ureter | CPT/HCPCS: 76770 ==